=== PATIENT | male | born 1965 | race Two or more races ===

== ENCOUNTER 2017-10-06 20:58 | Inpatient (IN) | payer OTHER ==
[~2017-10-06] VITALS: Ht 180.3 cm; Wt 57.3 kg
[2017-10-06 21:17] VITALS: BP 110/69
--- NOTE | 2017-10-06 21:18 | NUR ---
52 Y/O MALE PLACED IN BED 5 FOR EVALUATION OF RAPID HEART RATE. PT IS WARM TO TOUCH AND HAS A RECTAL TEMP OF 101.8
--- NOTE | 2017-10-06 21:24 | NUR ---
EKG AND CXR DONE.
[2017-10-06] MEDS ORDERED: IV NS 0.9% 500 ML BAG IV ONE (21:30)
[2017-10-06 21:37] LABS: BASOPHILS # (AUTO) 0.8 /CMM (0.0-0.2); BASOPHILS % (AUTO) 3.8 % (0.0-2.0); EOSINOPHILS # (AUTO) 0.1 /CMM (0.0-0.7); EOSINOPHILS % (AUTO) 0.5 % (0.0-6.0); HEMATOCRIT 34 % (39-51); HEMOGLOBIN 10.9 g/dL (13.5-17.5); LYMPHOCYTES # (AUTO) 0.7 /CMM (0.8-4.8); LYMPHOCYTES % (AUTO) 3.4 % (20.0-44.0); MEAN CORPUSCULAR HEMOGLOBIN 27 PG (26.0-33.0); MEAN CORPUSCULAR HGB CONC 32 g/dl (31.0-36.0); MEAN CORPUSCULAR VOLUME 84 fL (80-96); MONOCYTES # (AUTO) 0.4 /CMM (0.1-1.30); MONOCYTES % (AUTO) 1.9 % (2.0-12.0); NEUTROPHILS # (AUTO) 18.6 /CMM (1.8-8.9); NEUTROPHILS % (AUTO) 90.4 % (43.0-81.0); PLATELET COUNT (AUTO) 752 /CMM (150-450); RDW COEFFICIENT OF VARIATION 19.5 (11.5-15.0); RED BLOOD CELL COUNT(AUTO) 4.04 MIL/uL (4.5-6.0); WHITE BLOOD COUNT (AUTO) 20.6 K/uL (4.3-11.0)
[2017-10-06] MEDS ORDERED: ACETAMINOPHEN 325 MG TABLET PO STA (21:42)
--- NOTE | 2017-10-06 21:42 | NUR ---
PT ON VENT. NOT HOLDING SAT WELL. FIO2 INCREASED TO 100%. PT SUCTIONED. EKG AND CXR DONE. H/L 20G PLACED RIGHT A/C BLOOD DRAWN INCLUDING B/C. IVF RUNNING NOW.
[2017-10-06] MEDS ORDERED: IV NS 0.9% 1,000 ML BAG IV STA (21:46)
[2017-10-06 21:49] LABS: CALCIUM, SERUM 9.6 mg/dL (8.5-10.1); CHLORIDE 95 mmol/L (98-107); CREATININE 0.3 mg/dL (0.6-1.3); GLUCOSE 158 mg/dL (74-106); POTASSIUM 4.2 mmol/L (3.5-5.1); SODIUM SERUM 134 mmol/L (136-145); UREA NITROGEN, BLOOD 21 mg/dL (7-18)
[2017-10-06 21:50] LABS: CARBON DIOXIDE 41 mmol/L (21-32)
[2017-10-06 21:52] LABS: INR 1.04 (0.85-1.15)
[2017-10-06 21:56] LABS: TROPONIN I < 0.017 ng/mL (0.00-0.056)
[2017-10-06] MEDS ORDERED: ACETAMINOPHEN ES 500 MG TABLET ONE (22:07)
[2017-10-06 22:09] LABS: BAND % (MANUAL) 19 % (0.0-5.0); EOSINOPHILS % (MANUAL) 1 % (0-4); LYMPHOCYTES % (MANUAL) 4 % (16-48); NEUTROPHILS % (MANUAL) 76 (42-76)
[2017-10-06] MEDS ORDERED: PIPERACILLIN /TAZOBACTAM 3.375 G VIAL IV ONE (22:21)
--- NOTE | 2017-10-06 22:25 | NUR ---
CONTINUE TO GIVE IVF. TYLENOL GIVEN VIA G-TUBE. ANTIBIOTIC ZOSYN STARTED. HEAR RATE NOW IN LOW 130'S
[2017-10-06] MEDS ORDERED: PIPERACILLIN /TAZOBACTAM 3.375 G in IV D5W 50 ML IV ONE (22:30)
[2017-10-06] MEDS ORDERED: VANCOMYCIN 1 GM in IV D5W 250 ML IV ONE (22:30)
[2017-10-06 23:15] VITALS: BP 105/61
[2017-10-06] MEDS ORDERED: LEVALBUTEROL HCL NEB 1.25 MG/0.5 ML VIAL.NEB NEB PRN (23:30)
[2017-10-06] MEDS ORDERED: ACETAMINOPHEN 325 MG TABLET MC PRN (23:30)
[2017-10-06] MEDS ORDERED: MORPHINE SULFATE INJ 2 MG/ML DISP.SYRIN IV PRN (23:30)
[2017-10-06] MEDS ORDERED: IPRATROPIUM NEB FS 0.5 MG/2.5 ML AMPUL.NEB NEB PRN (23:30)
[2017-10-06] MEDS ORDERED: ONDANSETRON HCL/PF 4 MG/2 ML VIAL IVP PRN (23:30)
[2017-10-06] MEDS ORDERED: Z GUARD REMEDY 2 OZ OINT TP PRN (23:30)
--- NOTE | 2017-10-06 23:39 | NUR ---
LAB LATE IN RUNNING LACTIC ACID LEVEL.
--- NOTE | 2017-10-06 23:48 | NUR ---
E REPORT.PT ASSIGNED ROOM 256 IN ICU. ADMITTING MD DR. REBOLLEDO. PREPARING TO [facility]
[2017-10-06 23:50] LABS: APPEARANCE,URINE CLEAR (CLEAR); BILIRUBIN,URINE NEGATIVE (NEGATIVE); BLOOD, URINE 1+ Ery/uL (NEGATIVE); COLOR,URINE YELLOW (YELLOW); KETONES,URINE NEGATIVE (NEGATIVE); LEUKOCYTE ESTERASE ,URINE NEGATIVE (NEGATIVE); NITRITE, URINE NEGATIVE (NEGATIVE); PROTEIN,URINE 1+ mg/dl (NEGATIVE); UGLUCOSE NEGATIVE (NEGATIVE); UROBILINOGEN,URINE 0.2 EU/dL (0.2)
[2017-10-06 23:55] LABS: BACTERIA,URINE None seen /HPF (None Seen); SQUAMOUS EPITHELIAL CELL,UR Rare /HPF (None Seen); WBC,URINE 0-2 /HPF (0-3)
[2017-10-07] VITALS (45 sets, daily range): BP systolic 88–121; BP diastolic 53–73
--- NOTE | 2017-10-07 00:07 | NUR ---
RN NOTES REPORT RECEIVED FROM ACCOUNTING MANAGER CONTROLLER CESAR
[2017-10-07 00:10] LABS: ALANINE AMINOTRANSFERASE 33 U/L (12-78); ALKALINE PHOSPHATASE 118 U/L (46-116); ASPARTATE AMINOTRANSFERASE 33 U/L (15-37); BILIRUBIN,DIRECT 0.1 mg/dL (0.0-0.2); BILIRUBIN,TOTAL 0.2 mg/dL (0.2-1.0); TOTAL PROTEIN, SERUM 7.9 g/dL (6.4-8.2)
--- NOTE | 2017-10-07 00:35 | NUR ---
RN NOTES PT BROUGHT IN VIA GURNEY. TOLERATED TRANSFER TO BED WELL. NON-VERBAL, ABLE TO UNDERSTAND SOME CONCEPTS, NODS HEAD TO ANSWER. ON VENT WITH SETTINGS AC 14, TV 550, FIO2 100%, PEEP 5, SATURATING WELL, NO S/S OF RESP DISTRESS. GTUBE IS CLAMPED. SKIN CHECK DONE, WOUND PICS TAKEN AND FILED. HART CATH INTACT. RIGHT AC 20G FLUSHED AND PATENT, NO S/S OF INFILTRATION/INFECTION, DRESSING CDI. BED LOW AND LOCKED, SIDERAILS UP, CALL LIGHT WITHIN REACH. WILL MONITOR
--- NOTE | 2017-10-07 00:58 | NUR ---
ROOM CHANGE TO ICU 252. DX LEUKOCYTOSIS, JENS GHERIG DISEASE, AND PNA. PT TRANSFERRED TO ICU. PT REMAINS ON VENT.
[2017-10-07] MEDS: IV NS 0.9% 1,000 ML IV PRN ×2 (01:10→15:32)
[2017-10-07] MEDS ORDERED: PIPERACILLIN /TAZOBACTAM 2.25 G VIAL IV ONE (03:12)
[2017-10-07] MEDS ORDERED: PIPERACILLIN /TAZOBACTAM 2.25 G in IV D5W 50 ML IV ONE (04:00)
[2017-10-07] MEDS ORDERED: PIPERACILLIN /TAZOBACTAM 3.375 G in IV D5W 50 ML IV SCH ×2 (04:00→10:00)
[2017-10-07 04:40] LABS: BASOPHILS % (AUTO) 0.2 % (0.0-2.0); EOSINOPHILS # (AUTO) 0.2 /CMM (0.0-0.7); EOSINOPHILS % (AUTO) 1.3 % (0.0-6.0); HEMATOCRIT 28 % (39-51); HEMOGLOBIN 8.6 g/dL (13.5-17.5); LYMPHOCYTES # (AUTO) 1.4 /CMM (0.8-4.8); LYMPHOCYTES % (AUTO) 8.9 % (20.0-44.0); MEAN CORPUSCULAR HEMOGLOBIN 27 PG (26.0-33.0); MEAN CORPUSCULAR HGB CONC 31 g/dl (31.0-36.0); MEAN CORPUSCULAR VOLUME 86 fL (80-96); MONOCYTES # (AUTO) 0.1 /CMM (0.1-1.30); MONOCYTES % (AUTO) 0.7 % (2.0-12.0); NEUTROPHILS # (AUTO) 14.1 /CMM (1.8-8.9); NEUTROPHILS % (AUTO) 88.9 % (43.0-81.0); PLATELET COUNT (AUTO) 519 /CMM (150-450); RDW COEFFICIENT OF VARIATION 20.8 (11.5-15.0); RED BLOOD CELL COUNT(AUTO) 3.23 MIL/uL (4.5-6.0); WHITE BLOOD COUNT (AUTO) 15.9 K/uL (4.3-11.0)
--- NOTE | 2017-10-07 04:49 | NUR ---
PT RECEIVED ON VENT VIA CHARTED SETTINGS AND ROUTE. VENT PLUGGED INTO RED OUTLET. VENT ALARMS SET AND AUDIBLE. DISCONNECT ALARMS CHECKED. AMBU BAG AT BEDSIDE. TOLERATING VENT SETTINGS. Addendum: 10/07/17 at 0449 by SUKHDEV HUYNH RT Amended: Links added.
[2017-10-07 05:15] LABS: ALBUMIN 1.6 g/dL (3.4-5.0); BILIRUBIN,TOTAL 0.2 mg/dL (0.2-1.0); CALCIUM, SERUM 8.7 mg/dL (8.5-10.1); CREATININE 0.2 mg/dL (0.6-1.3); MAGNESIUM 1.8 mg/dL (1.8-2.4); PHOSPHORUS 3.7 mg/dL (2.5-4.9); POTASSIUM 3.8 mmol/L (3.5-5.1); TOTAL PROTEIN, SERUM 6.4 g/dL (6.4-8.2)
[2017-10-07 05:17] LABS: THYROID STIMULATING HORMONE 1.724 uIU/mL (0.358-3.74)
--- NOTE | 2017-10-07 06:20 | NUR ---
RN CLOSING NOTES PT REMAINS STABLE OF THE MOMENT. ALL DUE MEDS GIVEN, AM CARE PROVIDED. CURRENT FIO2 IS NOW 40%. BED LOW AND LOCKED, SIDERAILS UP, CALL LIGHT WITHIN REACH. WILL ENDORSE ALEXIA TO AM RN
--- NOTE | 2017-10-07 07:15 | NUR ---
HEAD OF IT NOTES RECEIVED PATIENT AOX1 ABLE TO FOLLOW COMMANDS , NOT IN ACUTE DISTRESS , RESPIRATIONS EVEN AND UNLABORED WITH SPO2 OF 100% VIA MECHANICAL VENTILATOR SETTINGS ORDERED , TRACH IN PLACE , ST 110 ON BEDSIDE MONITOR , GT PATENT AND INTACT CLAMPED , FC DRAINING VIA GRAVITY WITH CLEAR YELLOW URINE , IV OF R HAND # 18 PATENT AND INTACT WITH NS @ 70ML/HR , R AC # 20 PATENT AND INTACT SL , ALL NEEDS ATTENDED , BED ON LOW AND LOCKED POSITION , SIDE RAILS X2 , HOB @ 35 , WILL CONTINUE TO MONITOR
--- NOTE | 2017-10-07 07:49 | NUR ---
MEDICAL GENETICIST NOTES RECEIVED A CALL FROM TONI TO OBTAIN MRSA SWAB , SPECIMEN COLLECTED , LABELED AND SENT TO LAB CALLED MEDICATION RECON NURSE TO F/U HOME MEDS TO PUT IN THE SYSTEM , SPOKE WITH KULWINDER NURSE STACEY .
[2017-10-07] MEDS ORDERED: ALBUTEROL FS 2.5 MG/3 ML VIAL.NEB NEB PRN (08:30)
[2017-10-07] MEDS ORDERED: FEE PK DOSING 1 MIN EA MC ONE ×2 (08:31→09:28)
[2017-10-07] MEDS ORDERED: VANCOMYCIN 0.75 GM in IV D5W 250 ML IV SCH (09:00)
[2017-10-07] MEDS ORDERED: ENOX40DI SQ (09:15)
[2017-10-07] MEDS ORDERED: NA P133E RC (09:15)
[2017-10-07] MEDS ORDERED: BISA10SU61 RC (09:15)
[2017-10-07] MEDS ORDERED: SACC250C GT (09:15)
[2017-10-07] MEDS ORDERED: FERR220S2 GT (09:15)
[2017-10-07] MEDS ORDERED: ALBU2.5V38 IH ×2 (09:15)
[2017-10-07] MEDS ORDERED: ACET-73 GT (09:15)
[2017-10-07] MEDS ORDERED: BACL10TA GT (09:15)
[2017-10-07] MEDS ORDERED: FAMO40TA7 GT (09:15)
[2017-10-07] MEDS ORDERED: IPRA0.2S9 IH ×2 (09:15)
[2017-10-07] MEDS ORDERED: ACET325T53 GT (09:15)
[2017-10-07] MEDS ORDERED: CLOP75TA15 GT (09:15)
[2017-10-07] MEDS ORDERED: DOCU50LI GT (09:15)
[2017-10-07] MEDS ORDERED: MIDO5TAB GT (09:19)
[2017-10-07] MEDS ORDERED: MAGN400O6 GT (09:20)
--- NOTE | 2017-10-07 09:20 | NUR ---
CARTON CATCHER NOTES SEEN AND EVALUATED BY DR ROMAN , DISCUSSED LABS , CURRENT V/S , WITH LOW GRADE TEMP OF 100F ,SINUS TACHYCARDIA @ 110-115BMP , TOLERATING CURRENT VENT SETTINGS , MD AWARE . VERIFIED CT CHEST WITHOUT CONTRAST ORDER FROM ADMISSION , MD AWARE .
[2017-10-07] MEDS ORDERED: CRAN3875 GT (09:41)
[2017-10-07] MEDS ORDERED: SENN-167 GT (09:41)
[2017-10-07] MEDS ORDERED: ASCO500T9 GT (09:41)
[2017-10-07] MEDS ORDERED: SORB30SO2 GT (09:41)
[2017-10-07] MEDS ORDERED: METO25TA6 GT (09:41)
[2017-10-07] MEDS ORDERED: ZINC220C6 GT (09:41)
[2017-10-07] MEDS ORDERED: MULT-594 GT (09:41)
[2017-10-07] MEDS ORDERED: HYDR-552 GT ×2 (09:41)
[2017-10-07] MEDS ORDERED: EPOE4000 SQ (09:41)
[2017-10-07] MEDS ORDERED: AMIN30LI2 GT (09:41)
[2017-10-07] MEDS ORDERED: LEVO500T75 GT (09:41)
--- NOTE | 2017-10-07 10:03 | NUR ---
MOTOR AND GENERATOR ASSEMBLER NOTES DARIEN RN FROM WOUND CARE SEEN AND EVALUATED THE PATIENT , AWAITING FOR WOUND TX ORDERS
--- NOTE | 2017-10-07 10:09 | NUR ---
WOUND CARE CONSULT: PT PRESENTS WITH STAGE 4 ULCER TO SACRUM WITH UNDERMINING OF 3CM FROM 10 TO 1 OCLOCK POSITION, WELL RT EAR DEEP TISSUE INJURY IN EVOLUTION, PRESENT ON ADMISSION. FIRST STEP MATTRESS ORDERED. RECOMMEND SURGICAL CONSULT. ALL SKIN PROTECTION AND WOUND CARE RECOMMENDATIONS DISCUSSED WITH NURSING STAFF. CURRENT SRINIVASAN SCORE IS 11. WILL SEE PRN. BOURGEOIS IN AGREEMENT WITH PLAN OF CARE. Addendum: 10/07/17 at 1011 by DARIEN TAVERAS WNDNU Amended: Links added.
[2017-10-07] MEDS ORDERED: HYDROGEL DRESSING 90 GM TUBE TP PRN (10:30)
[2017-10-07] MEDS: HYDROGEL DRESSING 90 GM TUBE TP SCH (11:07)
[2017-10-07 11:16] LABS: ABG BASE EXCESS 9.1 mmol/L; ABG PCO2 50.6 mmHg (35.0-45.0); ABG PH 7.449 (7.350-7.450); ABG PO2 126.4 mmHg (75.0-100.0); AaDO2 100.6 mmHg; COHb 0.3 % (0.5-1.5); MetHb 0.7 % (0.0-1.5); PEEP,BG 5 cm H2O; SITE, ABG Right Radial; VT, ABG 550 mL
--- NOTE | 2017-10-07 11:26 | NUR ---
OUTDOOR POWER EQUIPMENT MECHANIC NOTES SEEN AND EVALUATED BY DR FERNANDEZ , DISCUSSED LABS , ABG , CURRENT V/S , NO PRESSORS , TOLERATING CURRENT VENT SETTINGS , F/U MEDICATION RECON , AWARE
[2017-10-07] MEDS: IPRATROPIUM NEB FS 0.5 MG/2.5 ML AMPUL.NEB NEB SCH ×4 (11:49→23:47)
[2017-10-07] MEDS: PIPERACILLIN /TAZOBACTAM 3.375 G in IV NS 0.9% 50 ML IV SCH ×3 (11:50→23:53)
--- NOTE | 2017-10-07 12:51 | NUR ---
PAY CLERK NOTES RECEIVED A CALL FROM DIETITIAN , ORDER TO START PT ON FIBERSOURCE WITH A GOAL RATE OF 60ML/HR , AND PROSTAT DAILY , ORDERS CARRIED OUT
[2017-10-07] MEDS: FIBERSOURCE HN 1,000 ML BOTTLE GT PRN (14:11)
[2017-10-07] MEDS ORDERED: BISACODYL SUPP (10 MG) 10 MG/SUPP.RECT SUPP.RECT RC PRN (15:00)
[2017-10-07] MEDS ORDERED: IPRATROPIUM NEB FS 0.5 MG/2.5 ML AMPUL.NEB IH PRN (15:00)
[2017-10-07] MEDS ORDERED: ALBUTEROL FS 2.5 MG/3 ML VIAL.NEB IH PRN (15:00)
[2017-10-07] MEDS ORDERED: MAGNESIUM HYDROXIDE 30 ML UDC GT PRN (15:00)
[2017-10-07] MEDS ORDERED: MISCELLANEOUS MED 1 EA EA GT PRN (15:00)
[2017-10-07] MEDS ORDERED: NA PHOS,M-B/NA PHOS,DI-BA 1 EA ENEMA RC PRN (15:00)
--- NOTE | 2017-10-07 16:29 | NUR ---
RT NOTE: PATIENT RECEIVED WITH #7 PORT[place] TRACH ON PB 840 VENT. ALARMS VERIFIED AND AUDIBLE. SUCTIONED AND LAVAGED SMALL- MODERATE AMOUNT OF THICK WHITE SECRETIONS. B/S=BILATERAL CLEAR THROUGHOUT LUNGS. VENT PLUGGED INTO RED OUTLET. AMBU BAG AT [facility].
[2017-10-07] MEDS: BACLOFEN (10 MG) 10 MG TABLET GT SCH (16:38)
[2017-10-07] MEDS: FERROUS SULFATE UDC 300 MG/5 ML UDC GT SCH (16:38)
[2017-10-07] MEDS: MIDODRINE HCL (5MG) 5 MG TABLET GT SCH (16:39)
[2017-10-07] MEDS ORDERED: PROSOURCE / PROSTAT (PYXIS) 30 ML UDC GT SCH (17:00)
[2017-10-07] MEDS ORDERED: Medication Not On Formulary EA (Cran/Vitc/Mannose/Inulin/Brom (Uti-Stat Liquid) 30 ML) GT SCH (17:00)
[2017-10-07] MEDS ORDERED: SACCHAROMYCES BOULARDII 250 MG CAPSULE GT SCH (17:22)
--- NOTE | 2017-10-07 20:26 | NUR ---
received pt from day shift, alert, follows simple commands, ST, on vent, lungs congested, no edema, GT to feeding, f/c OK output, v/s stable, no pain, pt turned and repositioned.
--- NOTE | 2017-10-07 20:40 | NUR ---
PT RECEIVED TRACHED ON VENT. NO RESP DISTRESS NOTED TOLERATING SETTINS. SX'D FOR SML AMT OF PALE SECRETIONS. VENT ALARMS SET AND AUDIBLE. AMBU BAG AT BEDSIDE. VENT PLUGGED INTO RED OUTLET. WILL CONTINUE TO MONITOR. Addendum: 10/07/17 at 2042 by MIO SANTOS RT Amended: Links added.
[2017-10-07] MEDS: VANCOMYCIN 0.75 GM in IV D5W 250 ML IV SCH (21:19)
[2017-10-07] MEDS: HYDROCODONE/APAP 5/325MG 1 EACH TABLET GT SCH (21:19)
[2017-10-07] MEDS: SENNOSIDES 8.6 MG TABLET GT SCH (21:19)
[2017-10-07] MEDS ORDERED: SORBITOL SOLUTION 30 ML ONE (21:33)
[2017-10-07] MEDS: SORBITOL SOLUTION 30 ML GT SCH (21:36)
[2017-10-08] VITALS (39 sets, daily range): BP systolic 84–129; BP diastolic 51–75
--- NOTE | 2017-10-08 00:24 | NUR ---
pt is resting in the bed, v/s stable, no pain, pt turned and repositioned q2hrs.
[2017-10-08] MEDS: IPRATROPIUM NEB FS 0.5 MG/2.5 ML AMPUL.NEB NEB SCH ×7 (03:29→23:56)
--- NOTE | 2017-10-08 04:17 | NUR ---
pt is resting in the bed, no acute distress overnight, ST, v/s stable, no pain, tolerates feeding, pt cleaned, changed and repositioned q2hrs.
[2017-10-08] MEDS: PIPERACILLIN /TAZOBACTAM 3.375 G in IV NS 0.9% 50 ML IV SCH ×4 (05:01→23:47)
[2017-10-08 05:09] LABS: BASOPHILS % (AUTO) 0.1 % (0.0-2.0); EOSINOPHILS # (AUTO) 0.7 /CMM (0.0-0.7); EOSINOPHILS % (AUTO) 3.7 % (0.0-6.0); HEMATOCRIT 23 % (39-51); HEMOGLOBIN 7.2 g/dL (13.5-17.5); LYMPHOCYTES # (AUTO) 1.6 /CMM (0.8-4.8); LYMPHOCYTES % (AUTO) 8.4 % (20.0-44.0); MEAN CORPUSCULAR HEMOGLOBIN 27 PG (26.0-33.0); MEAN CORPUSCULAR HGB CONC 31 g/dl (31.0-36.0); MEAN CORPUSCULAR VOLUME 85 fL (80-96); MONOCYTES # (AUTO) 0.5 /CMM (0.1-1.30); MONOCYTES % (AUTO) 2.9 % (2.0-12.0); NEUTROPHILS % (AUTO) 84.9 % (43.0-81.0); PLATELET COUNT (AUTO) 497 /CMM (150-450); RDW COEFFICIENT OF VARIATION 20.7 (11.5-15.0); RED BLOOD CELL COUNT(AUTO) 2.71 MIL/uL (4.5-6.0); WHITE BLOOD COUNT (AUTO) 18.8 K/uL (4.3-11.0)
[2017-10-08 05:25] LABS: CALCIUM, SERUM 8.5 mg/dL (8.5-10.1); CREATININE 0.2 mg/dL (0.6-1.3); PHOSPHORUS 3.1 mg/dL (2.5-4.9); POTASSIUM 3.6 mmol/L (3.5-5.1)
--- NOTE | 2017-10-08 07:10 | NUR ---
RN NOTES RECEIVED PATIENT ON BED, AOX1 ABLE TO FOLLOW COMMANDS ,NODES TO YES AND NO QUESTIONS ,VENT/TRACH DEPENDENT, TRACH SUCTIONING DONE, NO SOB NOTED, O2 SAT 100%, ON TELE ST HR IN 110'S , FIBERSOURCE AT 60CC/HR RUNNING VIA G-TUBE , TOLERATING WELL, HOB ELEVATED NO RESIDUAL NOTED,HART DRAINING VIA GRAVITY WITH CLEAR YELLOW URINE , R HAND IV SITE G 18 AND R AC IV G 18, SITES CDI, NS @ 70ML/HR RUNNING VIA R AC # 20 , ALL NEEDS ATTENDED , BED LOCKED AND IN LOWEST POSITION, SIDE RAILS X3 , CALL LIGHTS WITHIN EASY REACH, WILL CONTINUE TO MONITOR CLOSHAILEE
--- NOTE | 2017-10-08 07:39 | NUR ---
Pt received on mechanical vent. Pt trach is secure. Vent is plugged into a red outlet, alarms are set and audible, and BVM is at bedside. Addendum: 10/08/17 at 0740 by TONIA YANEZ RT Amended: Links added.
[2017-10-08] MEDS: FERROUS SULFATE UDC 300 MG/5 ML UDC GT SCH ×3 (08:32→16:16)
[2017-10-08] MEDS: MULTIVITAMINS,THERAGRAN 1 UDTAB TABLET GT SCH (08:32)
[2017-10-08] MEDS: LACTOBACILLUS RHAMNOSUS GG 1 EACH CAP.SPRINK PO SCH ×2 (08:32→16:16)
[2017-10-08] MEDS: DOCUSATE SODIUM LIQ 100 MG/10 ML UDC GT SCH (08:32)
[2017-10-08] MEDS: SENNOSIDES 8.6 MG TABLET GT SCH ×2 (08:33→21:20)
[2017-10-08] MEDS: BACLOFEN (10 MG) 10 MG TABLET GT SCH ×2 (08:33→16:16)
[2017-10-08] MEDS: ZINC SULFATE 220 MG CAPSULE GT SCH (08:33)
[2017-10-08] MEDS: MIDODRINE HCL (5MG) 5 MG TABLET GT SCH ×3 (08:33→16:16)
[2017-10-08] MEDS: HYDROCODONE/APAP 5/325MG 1 EACH TABLET GT SCH ×2 (08:33→21:19)
[2017-10-08] MEDS: FAMOTIDINE (20 MG) 20 MG TABLET GT SCH (08:33)
[2017-10-08] MEDS: ASCORBIC ACID 500 MG TABLET GT SCH (08:33)
[2017-10-08] MEDS: CLOPIDOGREL BISULFATE 75 MG TABLET PO SCH (08:34)
[2017-10-08] MEDS: PROSOURCE / PROSTAT (PYXIS) 30 ML UDC GT SCH (08:34)
[2017-10-08] MEDS: ENOXAPARIN SODIUM 40 MG/0.4 ML DISP.SYRIN SQ SCH (08:35)
[2017-10-08] MEDS: HYDROGEL DRESSING 90 GM TUBE TP SCH (08:35)
[2017-10-08] MEDS: IV NS 0.9% 1,000 ML IV PRN (08:47)
[2017-10-08] MEDS: VANCOMYCIN 0.75 GM in IV D5W 250 ML IV SCH ×2 (09:18→16:16)
[2017-10-08] MEDS: SORBITOL SOLUTION 30 ML GT SCH ×2 (11:07→21:20)
--- NOTE | 2017-10-08 12:00 | NUR ---
RN NOTES ON TELE SINUS TACH, TOLERATING TF WELL, NO RESIDUAL NOTED , CONTINUE TO MONITOR .
[2017-10-08] MEDS: FIBERSOURCE HN 1,000 ML BOTTLE GT PRN (12:29)
--- NOTE | 2017-10-08 15:34 | NUR ---
RN NOTES E TRACH SUCTIONING DONE , TOLERATING TF WELL, NO DISTRESS NOTED. AWAITING TO BE TRANSFER TO [facility] FLOOR WHEN BED IS AVAILABLE , CONTINUE TO MONITOR .
--- NOTE | 2017-10-08 18:43 | NUR ---
RN NOTES PT TRANSFERRED TO ROOM 117-1 [facility] IN STABLE CONDITION .
--- NOTE | 2017-10-08 19:30 | NUR ---
[facility] RN INITIAL NOTE PT RECEIVED IN BED AWAKE. ON MECH VENT WITH SETTINGS WELL TOLERATED. TELE-SINUS TACH 110. GTUBE FEEDING WELL TOLERATED WITHOUT RESIDUALS NOTED. HOB ELEVATED AND ON ASPIRATION PRECAUTIONS. IV RAC AND R HAND CLEAN, PATENT AND FLUSHING WELL WITH FLUIDS INFUSING. HART CATHETER IN PLACE AND DRAINING BY GRAVITY. WILL CONTINUE TO MONITOR.
[2017-10-08] MEDS ORDERED: LIDOCAINE 2%-EPI 1:100,000 30 ML VIAL TP ONE (22:30)
--- NOTE | 2017-10-08 23:58 | NUR ---
Received pt on vent support, pt is stable on current vent settings, no SOB or distress noted, alarms are on and audible,ventiletor is plugged into red outlet, ambu bag at bedside, will continue monitoring per MDS orders. Addendum: 10/08/17 at 2359 by SUZANNA CORDOBA RT Amended: Links added.
[2017-10-09] VITALS: BP 131/72
[2017-10-09] MEDS: VANCOMYCIN 0.75 GM in IV D5W 250 ML IV SCH ×2 (00:31→09:22)
[2017-10-09] MEDS: IPRATROPIUM NEB FS 0.5 MG/2.5 ML AMPUL.NEB NEB SCH ×6 (03:36→23:13)
[2017-10-09 04:00] VITALS: BP_SYST 106; BP_SYST 115; BP_DIAS 62; BP_DIAS 72
[2017-10-09] MEDS: PIPERACILLIN /TAZOBACTAM 3.375 G in IV NS 0.9% 50 ML IV SCH ×3 (05:26→17:01)
[2017-10-09] MEDS: IV NS 0.9% 1,000 ML IV PRN (05:26)
--- NOTE | 2017-10-09 06:58 | NUR ---
[facility] RN CLOSING NOTE NO ACUTE DISTRESS NOTED. VENT SETTINGS WELL TOLERATED. HOB ELEVATED. ALL NEEDS ATTENDED TO AND MET PROMPTLY. KEPT CLEAN AND DRY. SUCTIONED NEEDED. TREATMENT PERFORMED ORDERED. REPOSITIONED Q2H. WILL ENDORSE TO NEXT SHIFT FOR CONTINUITY OF CARE.
--- NOTE | 2017-10-09 07:23 | NUR ---
Male elvira pt received on mechanical vent. Pt elvira is secure. Vent is plugged into a red outlet, alarms are set and audible, and BVM is at bedside. Addendum: 10/09/17 at 0724 by TONIA YANEZ RT Amended: Links added.
--- NOTE | 2017-10-09 07:30 | NUR ---
[facility] RN INITIAL NOTES RECEIVED PATIENT ASLEEP IN BED, EASY TO AROUSE, AOX1, NONVERBAL, ON VENT SETTINGS ORDERED, NO SIGNS OF DISTRESS, ON TELE MONITORING ST 120 HR, ON GTUBE FEEDINGS NO RESIDUAL NOTED, FIBERSOURCE @ 60ML/HR, IV RAC 20G AND R HAND 18G, NS @ 70 ML/HR, SACRAL WOUND NOTED, DEBRIDEMENT TODAY CONSENT SIGNED, BED IN LOW AND LOCKED POSITION, WILL CONTINUE TO MONITOR.
[2017-10-09 07:48] LABS: BASOPHILS # (AUTO) 0.2 /CMM (0.0-0.2); EOSINOPHILS # (AUTO) 0.6 /CMM (0.0-0.7); EOSINOPHILS % (AUTO) 3.4 % (0.0-6.0); HEMATOCRIT 25 % (39-51); HEMOGLOBIN 7.8 g/dL (13.5-17.5); LYMPHOCYTES # (AUTO) 1.2 /CMM (0.8-4.8); LYMPHOCYTES % (AUTO) 6.7 % (20.0-44.0); MEAN CORPUSCULAR HEMOGLOBIN 27 PG (26.0-33.0); MEAN CORPUSCULAR HGB CONC 31 g/dl (31.0-36.0); MEAN CORPUSCULAR VOLUME 86 fL (80-96); MONOCYTES # (AUTO) 0.4 /CMM (0.1-1.30); MONOCYTES % (AUTO) 2.5 % (2.0-12.0); NEUTROPHILS # (AUTO) 15.2 /CMM (1.8-8.9); NEUTROPHILS % (AUTO) 86.4 % (43.0-81.0); PLATELET COUNT (AUTO) 503 /CMM (150-450); RED BLOOD CELL COUNT(AUTO) 2.92 MIL/uL (4.5-6.0); WHITE BLOOD COUNT (AUTO) 17.6 K/uL (4.3-11.0)
[2017-10-09 08:00] VITALS: BP_SYST 105; BP_SYST 111; BP_DIAS 60; BP_DIAS 73
[2017-10-09 08:04] LABS: CALCIUM, SERUM 8.4 mg/dL (8.5-10.1); CREATININE 0.2 mg/dL (0.6-1.3); MAGNESIUM 1.9 mg/dL (1.8-2.4); PHOSPHORUS 3.7 mg/dL (2.5-4.9); POTASSIUM 3.8 mmol/L (3.5-5.1)
[2017-10-09] MEDS: SORBITOL SOLUTION 30 ML GT SCH ×2 (09:21→20:50)
[2017-10-09] MEDS: DAKINS QUARTER STRENGTH (0.125%) 480 ML BOTTLE TOP SCH ×2 (09:21→17:01)
[2017-10-09] MEDS: ZINC SULFATE 220 MG CAPSULE GT SCH (09:22)
[2017-10-09] MEDS: FERROUS SULFATE UDC 300 MG/5 ML UDC GT SCH ×3 (09:22→17:01)
[2017-10-09] MEDS: LACTOBACILLUS RHAMNOSUS GG 1 EACH CAP.SPRINK PO SCH ×2 (09:22→17:00)
[2017-10-09] MEDS: DOCUSATE SODIUM LIQ 100 MG/10 ML UDC GT SCH (09:22)
[2017-10-09] MEDS: CLOPIDOGREL BISULFATE 75 MG TABLET PO SCH (09:22)
[2017-10-09] MEDS: SENNOSIDES 8.6 MG TABLET GT SCH ×2 (09:22→20:49)
[2017-10-09] MEDS: BACLOFEN (10 MG) 10 MG TABLET GT SCH ×2 (09:22→16:59)
[2017-10-09] MEDS: FAMOTIDINE (20 MG) 20 MG TABLET GT SCH (09:22)
[2017-10-09] MEDS: MIDODRINE HCL (5MG) 5 MG TABLET GT SCH ×3 (09:23→17:00)
[2017-10-09] MEDS: HYDROCODONE/APAP 5/325MG 1 EACH TABLET GT SCH ×2 (09:23→20:50)
[2017-10-09] MEDS: MULTIVITAMINS,THERAGRAN 1 UDTAB TABLET GT SCH (09:23)
[2017-10-09] MEDS: ASCORBIC ACID 500 MG TABLET GT SCH (09:23)
[2017-10-09] MEDS: ENOXAPARIN SODIUM 40 MG/0.4 ML DISP.SYRIN SQ SCH (09:24)
[2017-10-09] MEDS: HYDROGEL DRESSING 90 GM TUBE TP SCH (09:25)
[2017-10-09] MEDS: PROSOURCE / PROSTAT (PYXIS) 30 ML UDC GT SCH (09:25)
[2017-10-09 12:00] VITALS: BP 105/63
[2017-10-09] MEDS: FIBERSOURCE HN 1,000 ML BOTTLE GT PRN (14:00)
[2017-10-09 16:00] VITALS: BP 115/72
[2017-10-09] MEDS: VANCOMYCIN 1 GM in IV D5W 250 ML IV SCH ×2 (16:59→20:51)
--- NOTE | 2017-10-09 18:52 | NUR ---
[facility] RN END NOTES PATIENT RESTING IN BED, NO SIGNS OF DISTRESS, ALL NEEDS MET, WILL ENDORSE TO MARKETING DIRECTOR ASSISTED LIVING FOR CONTINUITY OF CARE.
--- NOTE | 2017-10-09 19:30 | NUR ---
[facility]/RN NOTES: RECEIVED PT. IN BED SLEEPING W/ HOB ELEVATED. A/O X 1. NON VERBAL. ON VENT SETTING TOLERATING WELL. ON TELE MONITOR W/ ST @ 105. ON GTF PATENT AND INTACT W/ NO RESIDUAL NOTED. TOLERATING WELL. HAS IVF VIA RAC INTACT AND PATENT W/ NO S/S OF INFECTION/INFECTION NOTED. CALL LIGHT W/ REACH. ALL NEEDS MEET AND ATTENDED.
[2017-10-09 20:00] VITALS: BP 116/68
[2017-10-10] VITALS (7 sets, daily range): BP systolic 98–116; BP diastolic 64–73
[2017-10-10] MEDS: PIPERACILLIN /TAZOBACTAM 3.375 G in IV NS 0.9% 50 ML IV SCH ×5 (00:21→23:07)
[2017-10-10] MEDS: IPRATROPIUM NEB FS 0.5 MG/2.5 ML AMPUL.NEB NEB SCH ×6 (04:22→22:53)
[2017-10-10] MEDS: VANCOMYCIN 1 GM in IV D5W 250 ML IV SCH ×3 (04:37→21:34)
[2017-10-10] MEDS: IV NS 0.9% 1,000 ML IV PRN (04:37)
--- NOTE | 2017-10-10 05:07 | NUR ---
RT PT RECEIVED ON [facility] VENT WITH NOTED SETTING. VENT PLUGGED IN TO RED OUTLET. ALARMS SE AND AUDIBLE. AMBU BAG AT HOB. TRACH PATENT AND SECURE. NO SOB OR RESP DISTRESS NOTED ON SHIFT. WILL CONTINUE TO MONITOR. Addendum: 10/10/17 at 0510 by RAFAEL MCELROY RT Amended: Links added.
[2017-10-10 06:46] LABS: BASOPHILS # (AUTO) 0.1 /CMM (0.0-0.2); BASOPHILS % (AUTO) 0.5 % (0.0-2.0); EOSINOPHILS # (AUTO) 0.8 /CMM (0.0-0.7); EOSINOPHILS % (AUTO) 4.4 % (0.0-6.0); HEMATOCRIT 28 % (39-51); HEMOGLOBIN 8.8 g/dL (13.5-17.5); LYMPHOCYTES # (AUTO) 1.4 /CMM (0.8-4.8); LYMPHOCYTES % (AUTO) 7.9 % (20.0-44.0); MEAN CORPUSCULAR HEMOGLOBIN 27 PG (26.0-33.0); MEAN CORPUSCULAR HGB CONC 32 g/dl (31.0-36.0); MEAN CORPUSCULAR VOLUME 86 fL (80-96); MONOCYTES # (AUTO) 0.5 /CMM (0.1-1.30); MONOCYTES % (AUTO) 2.7 % (2.0-12.0); NEUTROPHILS # (AUTO) 14.6 /CMM (1.8-8.9); NEUTROPHILS % (AUTO) 84.5 % (43.0-81.0); PLATELET COUNT (AUTO) 527 /CMM (150-450); RDW COEFFICIENT OF VARIATION 20.3 (11.5-15.0); RED BLOOD CELL COUNT(AUTO) 3.22 MIL/uL (4.5-6.0); WHITE BLOOD COUNT (AUTO) 17.2 K/uL (4.3-11.0)
[2017-10-10 06:51] LABS: CALCIUM, SERUM 8.9 mg/dL (8.5-10.1); CREATININE 0.2 mg/dL (0.6-1.3); PHOSPHORUS 3.2 mg/dL (2.5-4.9); POTASSIUM 4.1 mmol/L (3.5-5.1)
--- NOTE | 2017-10-10 07:30 | NUR ---
[facility] RN INITIAL NOTES RECEIVED PATIENT ASLEEP IN BED, EASY TO AROUSE, AOX1, NONVERBAL, ON VENT SETTINGS ORDERED, NO SIGNS OF DISTRESS, ON TELE MONITORING ST 119 HR, ON GTUBE FEEDINGS NO RESIDUAL NOTED, FIBERSOURCE @ 60ML/HR, IV RAC 20G AND R HAND 18G, NS @ 70 ML/HR, SACRAL WOUND NOTED, , BED IN LOW AND LOCKED POSITION, WILL CONTINUE TO MONITOR.
--- NOTE | 2017-10-10 07:37 | NUR ---
RN/ [facility] NOTES: NO ACUTE CHANGES NOTED DURING THIS SHIFT. REPORT GIVEN TO AM NURSE FOR ALEXIA.
[2017-10-10] MEDS: MULTIVITAMINS,THERAGRAN 1 UDTAB TABLET GT SCH (08:37)
[2017-10-10] MEDS: ASCORBIC ACID 500 MG TABLET GT SCH (08:37)
[2017-10-10] MEDS: FERROUS SULFATE UDC 300 MG/5 ML UDC GT SCH ×3 (08:37→17:12)
[2017-10-10] MEDS: LACTOBACILLUS RHAMNOSUS GG 1 EACH CAP.SPRINK PO SCH ×2 (08:37→17:12)
[2017-10-10] MEDS: PROSOURCE / PROSTAT (PYXIS) 30 ML UDC GT SCH (08:37)
[2017-10-10] MEDS: DOCUSATE SODIUM LIQ 100 MG/10 ML UDC GT SCH (08:37)
[2017-10-10] MEDS: CLOPIDOGREL BISULFATE 75 MG TABLET PO SCH (08:37)
[2017-10-10] MEDS: HYDROCODONE/APAP 5/325MG 1 EACH TABLET GT SCH ×2 (08:37→21:35)
[2017-10-10] MEDS: SORBITOL SOLUTION 30 ML GT SCH ×2 (08:38→21:34)
[2017-10-10] MEDS: MIDODRINE HCL (5MG) 5 MG TABLET GT SCH ×3 (08:38→17:13)
[2017-10-10] MEDS: ZINC SULFATE 220 MG CAPSULE GT SCH (08:38)
[2017-10-10] MEDS: SENNOSIDES 8.6 MG TABLET GT SCH ×2 (08:38→21:34)
[2017-10-10] MEDS: BACLOFEN (10 MG) 10 MG TABLET GT SCH ×2 (08:38→17:13)
[2017-10-10] MEDS: FAMOTIDINE (20 MG) 20 MG TABLET GT SCH (08:38)
[2017-10-10] MEDS: HYDROGEL DRESSING 90 GM TUBE TP SCH (08:39)
[2017-10-10] MEDS: DAKINS QUARTER STRENGTH (0.125%) 480 ML BOTTLE TOP SCH ×2 (08:39→17:14)
[2017-10-10] MEDS: ENOXAPARIN SODIUM 40 MG/0.4 ML DISP.SYRIN SQ SCH (08:40)
[2017-10-10] MEDS: HYDROCODONE/APAP 5/325MG 1 EACH TABLET GT PRN (13:07)
--- NOTE | 2017-10-10 13:30 | NUR ---
EYEGLASS LENS GRINDER NOTES PATIENT RECEIVED DEBRIDEMENT AT BEDSIDE, NO DISTRESS NOTED, TOLERATED WELL, PAIN MEDICATION GIVEN, WILL CONTINUE TO MONITOR.
[2017-10-10] MEDS: NEOMY SULF/BACITRAC ZN/POLY 15 GM TUBE TP SCH (14:27)
--- NOTE | 2017-10-10 17:29 | NUR ---
Pt tolerated current vent settings well. No changes made. Pt trach is secure. Vent is plugged into a red outlet, alarms are set and audible, and BVM is a bedside. Addendum: 10/10/17 at 1730 by TONIA YANEZ RT Amended: Links added.
--- NOTE | 2017-10-10 19:09 | NUR ---
HEEL COVER SPLITTER END NOTES PATIENT RESTING IN BED, NO SIGNS OF DISTRESS, ALL NEEDS MET, CLEAN AND REPOSITIONED, SUCTIONING DONE, WILL ENDORSE TO HISTORY TEACHER FOR CONTINUITY OF CARE.
--- NOTE | 2017-10-10 19:30 | NUR ---
TELE /RN NOTES: RECEIVED PT. IN BED W/ HOB ELEVATED. ON MECHANICAL VENTILATOR W/ PRESCRIBED SETTING TOLERATING WELL. NO FACIAL GRIMACES OR MOANING NOTED. NO S/S OF RESPIRATORY DISTRESS NOTED. ON TELE MONITOR ST @ 105. W/ GTF INPLACE AND PATENT TOLERATING FEEDING WELL W/ NO RESIDUAL NOTED. HAS IVF OF NS @ 70 ML/HR VIA RAC TOLERATING WELL W/ NO S/S OF INFECTION/INFILTRATION NOTED. HAS SL ON RH G # 18 PATENT AND INTACT W/ NO S/S OF INFECTION/INFILTRATION NOTED. FLUSHED WELL. A/O X 1 NON VERBAL. BED LOCKED AND IN LOW POSITION. CALL LIGHT W/ REACH. WILL CONTINUE TO MONITOR.
[2017-10-11] VITALS (8 sets, daily range): BP systolic 90–135; BP diastolic 60–80
[2017-10-11] MEDS: FIBERSOURCE HN 1,000 ML BOTTLE GT PRN ×2 (01:10→17:48)
[2017-10-11] MEDS: IV NS 0.9% 1,000 ML IV PRN ×2 (01:30→17:23)
[2017-10-11] MEDS: IPRATROPIUM NEB FS 0.5 MG/2.5 ML AMPUL.NEB NEB SCH ×6 (03:03→22:52)
[2017-10-11] MEDS: VANCOMYCIN 1 GM in IV D5W 250 ML IV SCH ×3 (04:50→21:22)
[2017-10-11] MEDS: PIPERACILLIN /TAZOBACTAM 3.375 G in IV NS 0.9% 50 ML IV SCH ×3 (06:02→17:23)
--- NOTE | 2017-10-11 06:58 | NUR ---
TELE/RN NOTES: NO ACUTE CHANGES NOTED DURING THIS SHIFT. REPORT GIVEN TO AM NURSE FOR ALEXIA.
--- NOTE | 2017-10-11 07:08 | NUR ---
Male elvira pt received on mechanical vent. Pt elvira is secure. Vent is plugged into a red outlet, alarms are set and audible, and BVM is at bedside. Addendum: 10/11/17 at 0751 by TONIA YANEZ RT Amended: Links added.
--- NOTE | 2017-10-11 07:12 | NUR ---
RN INITIAL NOTES: REC'D PT ON BED, NOT IN ANY DISTRESS, OPENS EYES SPONTANEOUSLY. ON MV VIA TRACH, NO SOB. ON TELEMONITOR, ST W/ HR 110 BPM. HAS GT PATENT & INTACT, ON CONT TUBE FEEDING FIBERSOURCE X 60 CC/HR INFUSING WELL. HAS 2 IV LINE ACCESS: R AC G20 AND R HAND G18, BOTH PATENT & INTACT W/ NO S/SX OF INFECTION/INFILTRATION NOTED, R AC HAS NS X 70 CC/HR INFUSING WELL. PROVIDED COMFORT & SAFETY MEASURES. BED KEPT LOW & IN LOCKED POS. CALL LIGHT PLACED W/IN REACH. WILL CONTINUE TO MONITOR & ATTEND PT NEEDS.
[2017-10-11 07:21] LABS: BASOPHILS # (AUTO) 0.1 /CMM (0.0-0.2); BASOPHILS % (AUTO) 0.6 % (0.0-2.0); EOSINOPHILS # (AUTO) 0.8 /CMM (0.0-0.7); EOSINOPHILS % (AUTO) 5.6 % (0.0-6.0); HEMATOCRIT 27 % (39-51); HEMOGLOBIN 8.6 g/dL (13.5-17.5); LYMPHOCYTES # (AUTO) 1.3 /CMM (0.8-4.8); LYMPHOCYTES % (AUTO) 9.4 % (20.0-44.0); MEAN CORPUSCULAR HEMOGLOBIN 27 PG (26.0-33.0); MEAN CORPUSCULAR HGB CONC 32 g/dl (31.0-36.0); MEAN CORPUSCULAR VOLUME 86 fL (80-96); MONOCYTES # (AUTO) 0.6 /CMM (0.1-1.30); NEUTROPHILS # (AUTO) 11.4 /CMM (1.8-8.9); NEUTROPHILS % (AUTO) 80.4 % (43.0-81.0); PLATELET COUNT (AUTO) 482 /CMM (150-450); RDW COEFFICIENT OF VARIATION 20.8 (11.5-15.0); RED BLOOD CELL COUNT(AUTO) 3.14 MIL/uL (4.5-6.0); WHITE BLOOD COUNT (AUTO) 14.2 K/uL (4.3-11.0)
[2017-10-11 07:48] LABS: CALCIUM, SERUM 8.5 mg/dL (8.5-10.1); CREATININE 0.2 mg/dL (0.6-1.3); MAGNESIUM 2.1 mg/dL (1.8-2.4); PHOSPHORUS 3.5 mg/dL (2.5-4.9); POTASSIUM 4.1 mmol/L (3.5-5.1)
[2017-10-11] MEDS: FERROUS SULFATE UDC 300 MG/5 ML UDC GT SCH ×3 (08:22→17:23)
[2017-10-11] MEDS: HYDROCODONE/APAP 5/325MG 1 EACH TABLET GT SCH ×2 (08:22→21:23)
[2017-10-11] MEDS: DOCUSATE SODIUM LIQ 100 MG/10 ML UDC GT SCH (08:22)
[2017-10-11] MEDS: MULTIVITAMINS,THERAGRAN 1 UDTAB TABLET GT SCH (08:22)
[2017-10-11] MEDS: CLOPIDOGREL BISULFATE 75 MG TABLET PO SCH (08:22)
[2017-10-11] MEDS: LACTOBACILLUS RHAMNOSUS GG 1 EACH CAP.SPRINK PO SCH ×2 (08:22→17:23)
[2017-10-11] MEDS: ZINC SULFATE 220 MG CAPSULE GT SCH (08:22)
[2017-10-11] MEDS: SENNOSIDES 8.6 MG TABLET GT SCH ×2 (08:22→21:23)
[2017-10-11] MEDS: FAMOTIDINE (20 MG) 20 MG TABLET GT SCH (08:23)
[2017-10-11] MEDS: ASCORBIC ACID 500 MG TABLET GT SCH (08:23)
[2017-10-11] MEDS: PROSOURCE / PROSTAT (PYXIS) 30 ML UDC GT SCH (08:23)
[2017-10-11] MEDS: SORBITOL SOLUTION 30 ML GT SCH ×2 (08:23→21:22)
[2017-10-11] MEDS: BACLOFEN (10 MG) 10 MG TABLET GT SCH ×2 (08:23→17:23)
[2017-10-11] MEDS: DAKINS QUARTER STRENGTH (0.125%) 480 ML BOTTLE TOP SCH ×2 (08:25→17:25)
[2017-10-11] MEDS: NEOMY SULF/BACITRAC ZN/POLY 15 GM TUBE TP SCH (08:25)
[2017-10-11] MEDS: MIDODRINE HCL (5MG) 5 MG TABLET GT SCH ×4 (08:26→17:24)
[2017-10-11] MEDS: ENOXAPARIN SODIUM 40 MG/0.4 ML DISP.SYRIN SQ SCH (08:26)
[2017-10-11 12:25] LABS: EOSINOPHILS % (MANUAL) 2 % (0-4); LYMPHOCYTES % (MANUAL) 6 % (16-48); NEUTROPHILS % (MANUAL) 92 (42-76)
[2017-10-11] MEDS: HYDROCODONE/APAP 5/325MG 1 EACH TABLET GT PRN (15:42)
--- NOTE | 2017-10-11 18:55 | NUR ---
RN INITIAL NOTES: NO ACUTE CHANGES NOTED W/IN SHIFT. PT TOLERATED MV SETTINGS VIA TRACH, NO SOB. ON TELEMONITOR, STILL ST. GT KEPT PATENT & INTACT, ON CONT TUBE FEEDING FIBERSOURCE X 60 CC/HR TOLERATED WELL. 2 IV LINE ACCESS: R AC G20 AND PETER MIDLINE, KEPT PATENT & INTACT W/ NO S/SX OF INFECTION/INFILTRATION NOTED, PETER MIDLINE HAS NS X 70 CC/HR INFUSING WELL. KEPT WELL RESTED. NEEDS ATTENDED. BED KEPT LOW & IN LOCKED POS. CALL LIGHT PLACED W/IN REACH. WILL ENDORSE TO PM RN FOR ALEXIA.
--- NOTE | 2017-10-11 19:28 | NUR ---
RN NOTE RECEIVED PATIENT IN BED, ASLEEP, SINUS TACHYCARDIA 104, NO RESPIRATORY DISTRESS NOTED, ONGOING IV FLUIDS, G-TUBE FEEDING, HART CATHETER IS INTACT, PETER MIDLINE NS AT 70 ML/HR, RAC 20 GAUGE, NO S/S OF INFILTRATION NOTED, ON [facility] VENTILATOR, PLUGGED TO RED OUTLET AND WORKING PROPERLY, NO PAIN OR DISCOMFORT NOTED, ALL SAFETY MEASURES TAKEN, BED IN THE LOWEST POSITION, CALL LIGHT WITHIN REACH, SIDE RAILS UP X 2, WILL CONTINUE TO MONITOR PATIENT
--- NOTE | 2017-10-11 19:34 | NUR ---
RECEIVED TRACH PT ON MECH VENT WITH NOTED SETTING. VENT PLUGGED IN TO RED OUTLET. ALARMS SE AND AUDIBLE. AMBU BAG AT HOB. TRACH PATENT AND SECURE. TECHNICAL ILLUSTRATOR DONE. PT FRANDY Q4 BREATHING TX ORDERED BY MD. NO SOB OR RESP DISTRESS NOTED ON SHIFT. SX PRN. WILL CONTINUE TO MONITOR.
[2017-10-12] VITALS: BP 111/74
[2017-10-12] MEDS: PIPERACILLIN /TAZOBACTAM 3.375 G in IV NS 0.9% 50 ML IV SCH ×4 (00:07→17:22)
[2017-10-12] MEDS: IPRATROPIUM NEB FS 0.5 MG/2.5 ML AMPUL.NEB NEB SCH ×6 (03:23→23:16)
[2017-10-12 04:00] VITALS: BP 115/72
[2017-10-12] MEDS: VANCOMYCIN 1 GM in IV D5W 250 ML IV SCH ×3 (06:02→21:42)
--- NOTE | 2017-10-12 07:27 | NUR ---
RN NOTE NO CHANGES DURING MY SHIFT, PATIENT IS STABLE, NO RESPIRATORY DISTRESS SO2 98%, ON MECHANICAL VENTILATOR, TOLERATES WELL, ALL SAFETY MEASURES TAKEN
[2017-10-12 07:28] LABS: BASOPHILS % (AUTO) 0.1 % (0.0-2.0); EOSINOPHILS # (AUTO) 0.8 /CMM (0.0-0.7); EOSINOPHILS % (AUTO) 5.4 % (0.0-6.0); HEMATOCRIT 28 % (39-51); HEMOGLOBIN 8.7 g/dL (13.5-17.5); LYMPHOCYTES # (AUTO) 1.4 /CMM (0.8-4.8); LYMPHOCYTES % (AUTO) 9.5 % (20.0-44.0); MEAN CORPUSCULAR HEMOGLOBIN 27 PG (26.0-33.0); MEAN CORPUSCULAR HGB CONC 31 g/dl (31.0-36.0); MEAN CORPUSCULAR VOLUME 86 fL (80-96); MONOCYTES # (AUTO) 0.6 /CMM (0.1-1.30); MONOCYTES % (AUTO) 3.8 % (2.0-12.0); NEUTROPHILS # (AUTO) 12.3 /CMM (1.8-8.9); NEUTROPHILS % (AUTO) 81.2 % (43.0-81.0); PLATELET COUNT (AUTO) 537 /CMM (150-450); RDW COEFFICIENT OF VARIATION 20.4 (11.5-15.0); RED BLOOD CELL COUNT(AUTO) 3.24 MIL/uL (4.5-6.0); WHITE BLOOD COUNT (AUTO) 15.1 K/uL (4.3-11.0)
[2017-10-12 08:00] VITALS: BP 103/60
[2017-10-12 08:03] LABS: CALCIUM, SERUM 9.2 mg/dL (8.5-10.1); CREATININE 0.2 mg/dL (0.6-1.3); MAGNESIUM 2.1 mg/dL (1.8-2.4); POTASSIUM 4.6 mmol/L (3.5-5.1)
[2017-10-12] MEDS: BACLOFEN (10 MG) 10 MG TABLET GT SCH ×2 (09:06→17:20)
[2017-10-12] MEDS: FERROUS SULFATE UDC 300 MG/5 ML UDC GT SCH ×3 (09:06→17:20)
[2017-10-12] MEDS: DOCUSATE SODIUM LIQ 100 MG/10 ML UDC GT SCH (09:06)
[2017-10-12] MEDS: ZINC SULFATE 220 MG CAPSULE GT SCH (09:07)
[2017-10-12] MEDS: MULTIVITAMINS,THERAGRAN 1 UDTAB TABLET GT SCH (09:07)
[2017-10-12] MEDS: FAMOTIDINE (20 MG) 20 MG TABLET GT SCH (09:07)
[2017-10-12] MEDS: LACTOBACILLUS RHAMNOSUS GG 1 EACH CAP.SPRINK PO SCH ×2 (09:07→17:20)
[2017-10-12] MEDS: SENNOSIDES 8.6 MG TABLET GT SCH ×2 (09:07→21:42)
[2017-10-12] MEDS: ASCORBIC ACID 500 MG TABLET GT SCH (09:07)
[2017-10-12] MEDS: NEOMY SULF/BACITRAC ZN/POLY 15 GM TUBE TP SCH (09:07)
[2017-10-12] MEDS: CLOPIDOGREL BISULFATE 75 MG TABLET PO SCH (09:07)
[2017-10-12] MEDS: MIDODRINE HCL (5MG) 5 MG TABLET GT SCH ×3 (09:08→17:20)
[2017-10-12] MEDS: PROSOURCE / PROSTAT (PYXIS) 30 ML UDC GT SCH (09:11)
[2017-10-12] MEDS: ENOXAPARIN SODIUM 40 MG/0.4 ML DISP.SYRIN SQ SCH (09:11)
[2017-10-12] MEDS: SORBITOL SOLUTION 30 ML GT SCH ×2 (09:14→21:42)
[2017-10-12] MEDS: HYDROCODONE/APAP 5/325MG 1 EACH TABLET GT SCH ×2 (09:14→21:43)
[2017-10-12] MEDS: DAKINS QUARTER STRENGTH (0.125%) 480 ML BOTTLE TOP SCH ×2 (09:15→17:22)
[2017-10-12 12:00] VITALS: BP 114/67
[2017-10-12] MEDS: FIBERSOURCE HN 1,000 ML BOTTLE GT PRN (12:22)
[2017-10-12 16:00] VITALS: BP 106/64
--- NOTE | 2017-10-12 16:35 | NUR ---
RT NOTE: PATIENT RECEIVED TRACHED ON PB 840 VENT. ALARMS VERIFIED AND AUDIBLE. SUCTIONED AND LAVAGED SMALL-MODERATE AMOUNT OF THICK CLEAR/WHITE SECRETIONS. VENT PLUGGED INTO RED OUTLET. AMBU BAG AT [facility].
[2017-10-12] MEDS: IV NS 0.9% 1,000 ML IV PRN (17:19)
--- NOTE | 2017-10-12 19:53 | NUR ---
RN NOTES NO ACUTE CHANGES NOTED. PT TOLERATED MV SETTINGS VIA TRACH, NO SOB. ON TELEMONITOR, STILL SHOWS SINUS TACHY 111. ON CONTINOUS TUBE FEEDING OF FIBERSOURCE @ 60 CC/HR TOLERATED WELL. NO RESIDUAL. 2 IV LINE ACCESS: R AC G20 AND PETER MIDLINE, KEPT PATENT & INTACT W/ NO S/SX OF INFECTION/INFILTRATION NOTED, PETER MIDLINE WITH NS @ 70 CC/HR INFUSING WELL. TURNED AND REPOSITIONED EVERY 2 HOURS AND PRN, SKIN CARE RENDERED, WOUND TREATMENT RENDERED, NEEDS ATTENDED. BED KEPT LOW & IN LOCKED POS. CALL LIGHT PLACED W/IN REACH. ENDORSED TO MOTORIZED SQUAD SERGEANT FOR ALEXIA.
--- NOTE | 2017-10-12 19:54 | NUR ---
RCVD PT ON VENT WITH NOTED SETTINGS, BREATHING TX GIVEN PER MD'S ORDER, NO ADVERSE REACTION NOTED. SUCTIONED MODERATE AMOUNT OF THICK YELLOW SECRETIONS WITH TINGED BLOOD. VENT PLUGGED INTO RED OUTLET, VENT ALARM WORKING AND AUDIBLE. AMBU BAG AT BEDSIDE. WILL CONTINUE TO MONITOR THE PT.
[2017-10-12 20:00] VITALS: BP 123/73
[2017-10-13] VITALS (7 sets, daily range): BP systolic 84–115; BP diastolic 54–73
[2017-10-13] MEDS: PIPERACILLIN /TAZOBACTAM 3.375 G in IV NS 0.9% 50 ML IV SCH ×4 (01:39→18:15)
[2017-10-13] MEDS: IPRATROPIUM NEB FS 0.5 MG/2.5 ML AMPUL.NEB NEB SCH ×6 (03:54→23:46)
[2017-10-13] MEDS: VANCOMYCIN 1 GM in IV D5W 250 ML IV SCH ×2 (05:16→13:00)
[2017-10-13 07:11] LABS: CALCIUM, SERUM 9.1 mg/dL (8.5-10.1); CREATININE 0.2 mg/dL (0.6-1.3); MAGNESIUM 2.3 mg/dL (1.8-2.4); PHOSPHORUS 3.9 mg/dL (2.5-4.9); POTASSIUM 4.2 mmol/L (3.5-5.1)
[2017-10-13 07:14] LABS: BASOPHILS % (AUTO) 0.3 % (0.0-2.0); EOSINOPHILS # (AUTO) 0.7 /CMM (0.0-0.7); EOSINOPHILS % (AUTO) 4.5 % (0.0-6.0); HEMATOCRIT 28 % (39-51); HEMOGLOBIN 8.8 g/dL (13.5-17.5); LYMPHOCYTES # (AUTO) 1.4 /CMM (0.8-4.8); LYMPHOCYTES % (AUTO) 9.3 % (20.0-44.0); MEAN CORPUSCULAR HEMOGLOBIN 27 PG (26.0-33.0); MEAN CORPUSCULAR HGB CONC 32 g/dl (31.0-36.0); MEAN CORPUSCULAR VOLUME 86 fL (80-96); MONOCYTES # (AUTO) 0.4 /CMM (0.1-1.30); MONOCYTES % (AUTO) 2.8 % (2.0-12.0); NEUTROPHILS # (AUTO) 12.4 /CMM (1.8-8.9); NEUTROPHILS % (AUTO) 83.1 % (43.0-81.0); PLATELET COUNT (AUTO) 561 /CMM (150-450); RDW COEFFICIENT OF VARIATION 21.2 (11.5-15.0); RED BLOOD CELL COUNT(AUTO) 3.24 MIL/uL (4.5-6.0); WHITE BLOOD COUNT (AUTO) 14.9 K/uL (4.3-11.0)
--- NOTE | 2017-10-13 07:17 | NUR ---
RN NOTE PT REMAINS IN NO ACUTE DISTRESS IN BED. PT DID NOT HAVE ANY SIGNIFICANT CHANGE IN CONDITION DURING SHIFT. PT TOLERATED VENT SETTING WELL. ALL NEEDS MET, ALL ORDERS CARRIED OUT. WILL ENDORSE CARE TO AM RN FOR CONTINUITY OF CARE.
[2017-10-13] MEDS: SORBITOL SOLUTION 30 ML GT SCH ×2 (09:05→20:59)
[2017-10-13] MEDS: DOCUSATE SODIUM LIQ 100 MG/10 ML UDC GT SCH (09:05)
[2017-10-13] MEDS: MIDODRINE HCL (5MG) 5 MG TABLET GT SCH ×3 (09:06→16:23)
[2017-10-13] MEDS: HYDROCODONE/APAP 5/325MG 1 EACH TABLET GT SCH ×2 (09:06→20:59)
[2017-10-13] MEDS: BACLOFEN (10 MG) 10 MG TABLET GT SCH ×2 (09:06→16:22)
[2017-10-13] MEDS: ZINC SULFATE 220 MG CAPSULE GT SCH (09:07)
[2017-10-13] MEDS: FAMOTIDINE (20 MG) 20 MG TABLET GT SCH (09:07)
[2017-10-13] MEDS: CLOPIDOGREL BISULFATE 75 MG TABLET PO SCH (09:07)
[2017-10-13] MEDS: ENOXAPARIN SODIUM 40 MG/0.4 ML DISP.SYRIN SQ SCH (09:07)
[2017-10-13] MEDS: PROSOURCE / PROSTAT (PYXIS) 30 ML UDC GT SCH (09:08)
[2017-10-13] MEDS: LACTOBACILLUS RHAMNOSUS GG 1 EACH CAP.SPRINK PO SCH ×2 (09:08→16:26)
[2017-10-13] MEDS: ASCORBIC ACID 500 MG TABLET GT SCH (09:08)
[2017-10-13] MEDS: MULTIVITAMINS,THERAGRAN 1 UDTAB TABLET GT SCH (09:08)
[2017-10-13] MEDS: DAKINS QUARTER STRENGTH (0.125%) 480 ML BOTTLE TOP SCH ×2 (09:09→16:27)
[2017-10-13] MEDS: FERROUS SULFATE UDC 300 MG/5 ML UDC GT SCH ×3 (09:16→16:22)
[2017-10-13] MEDS: SENNOSIDES 8.6 MG TABLET GT SCH ×2 (09:16→20:59)
--- NOTE | 2017-10-13 09:42 | NUR ---
RN NOTES PT SEEN BY PT; LEFT FLANK RASHES ASSESSED AND SCRAPING DONE BY MARTY PRADO
[2017-10-13] MEDS: IV NS 0.9% 1,000 ML IV PRN (12:31)
--- NOTE | 2017-10-13 13:07 | NUR ---
JOSE QUAN TROUGH LEVEL = 30; DOSE HELD PER INSTRUCTION
[2017-10-13] MEDS: NEOMY SULF/BACITRAC ZN/POLY 15 GM TUBE TP SCH (16:22)
[2017-10-13] MEDS: ACETAMINOPHEN 650 MG/20.3 ML UDC GT PRN (16:22)
--- NOTE | 2017-10-13 19:20 | NUR ---
RN CLOSING NOTES ENDORSED PT IN STABLE CONDITION. TURNED AND REPOSITIONED , BOTH HEELS KEPT OFFLOADED. HOB KEPT ELEVATED AT ALL TIMES; ASPIRATION PRECAUTION OBSERVED. ALL MEDS GIVEN THRU PATENT GT AND FLUSHED ORDERED.WOUND CARE DONE DIRECTED
[2017-10-13] MEDS: MEROPENEM 500 MG in IV NS 0.9% 50 ML IV SCH (20:58)
[2017-10-14] VITALS (9 sets, daily range): BP systolic 97–141; BP diastolic 66–79
[2017-10-14] MEDS: IPRATROPIUM NEB FS 0.5 MG/2.5 ML AMPUL.NEB NEB SCH ×5 (04:00→19:43)
[2017-10-14] MEDS: MEROPENEM 500 MG in IV NS 0.9% 50 ML IV SCH ×3 (04:20→21:36)
[2017-10-14] MEDS: FIBERSOURCE HN 1,000 ML BOTTLE GT PRN (04:22)
[2017-10-14] MEDS: HYDROCODONE/APAP 5/325MG 1 EACH TABLET GT PRN (04:22)
[2017-10-14] MEDS: VANCOMYCIN 1 GM in IV D5W 250 ML IV SCH (05:11)
[2017-10-14] MEDS: IV NS 0.9% 1,000 ML IV PRN (05:11)
[2017-10-14 07:56] LABS: BASOPHILS # (AUTO) 0.1 /CMM (0.0-0.2); BASOPHILS % (AUTO) 0.3 % (0.0-2.0); EOSINOPHILS # (AUTO) 0.8 /CMM (0.0-0.7); HEMATOCRIT 27 % (39-51); HEMOGLOBIN 8.6 g/dL (13.5-17.5); LYMPHOCYTES # (AUTO) 1.8 /CMM (0.8-4.8); LYMPHOCYTES % (AUTO) 10.8 % (20.0-44.0); MEAN CORPUSCULAR HEMOGLOBIN 27 PG (26.0-33.0); MEAN CORPUSCULAR HGB CONC 32 g/dl (31.0-36.0); MEAN CORPUSCULAR VOLUME 85 fL (80-96); MONOCYTES # (AUTO) 0.8 /CMM (0.1-1.30); MONOCYTES % (AUTO) 4.7 % (2.0-12.0); NEUTROPHILS # (AUTO) 12.9 /CMM (1.8-8.9); NEUTROPHILS % (AUTO) 79.2 % (43.0-81.0); PLATELET COUNT (AUTO) 592 /CMM (150-450); RDW COEFFICIENT OF VARIATION 20.9 (11.5-15.0); RED BLOOD CELL COUNT(AUTO) 3.21 MIL/uL (4.5-6.0); WHITE BLOOD COUNT (AUTO) 16.4 K/uL (4.3-11.0)
[2017-10-14 08:04] LABS: CALCIUM, SERUM 9.2 mg/dL (8.5-10.1); CREATININE 0.2 mg/dL (0.6-1.3); MAGNESIUM 2.3 mg/dL (1.8-2.4); PHOSPHORUS 3.8 mg/dL (2.5-4.9); POTASSIUM 4.4 mmol/L (3.5-5.1)
[2017-10-14] MEDS: FERROUS SULFATE UDC 300 MG/5 ML UDC GT SCH ×3 (09:52→18:05)
[2017-10-14] MEDS: ZINC SULFATE 220 MG CAPSULE GT SCH (09:52)
[2017-10-14] MEDS: DOCUSATE SODIUM LIQ 100 MG/10 ML UDC GT SCH (09:52)
[2017-10-14] MEDS: LACTOBACILLUS RHAMNOSUS GG 1 EACH CAP.SPRINK PO SCH ×2 (09:52→18:05)
[2017-10-14] MEDS: MIDODRINE HCL (5MG) 5 MG TABLET GT SCH ×3 (09:53→17:00)
[2017-10-14] MEDS: BACLOFEN (10 MG) 10 MG TABLET GT SCH ×2 (09:53→18:05)
[2017-10-14] MEDS: FAMOTIDINE (20 MG) 20 MG TABLET GT SCH (09:53)
[2017-10-14] MEDS: SENNOSIDES 8.6 MG TABLET GT SCH ×2 (09:53→21:36)
[2017-10-14] MEDS: ASCORBIC ACID 500 MG TABLET GT SCH (09:53)
[2017-10-14] MEDS: MULTIVITAMINS,THERAGRAN 1 UDTAB TABLET GT SCH (09:53)
[2017-10-14] MEDS: CLOPIDOGREL BISULFATE 75 MG TABLET PO SCH (09:53)
[2017-10-14] MEDS: PROSOURCE / PROSTAT (PYXIS) 30 ML UDC GT SCH (09:53)
[2017-10-14] MEDS: HYDROCODONE/APAP 5/325MG 1 EACH TABLET GT SCH ×2 (09:54→21:37)
[2017-10-14] MEDS: ENOXAPARIN SODIUM 40 MG/0.4 ML DISP.SYRIN SQ SCH (09:59)
[2017-10-14] MEDS: DAKINS QUARTER STRENGTH (0.125%) 480 ML BOTTLE TOP SCH ×2 (10:02→18:06)
[2017-10-14] MEDS: NEOMY SULF/BACITRAC ZN/POLY 15 GM TUBE TP SCH (10:03)
[2017-10-14] MEDS: SORBITOL SOLUTION 30 ML GT SCH ×2 (10:17→21:37)
--- NOTE | 2017-10-14 19:30 | NUR ---
TIRE BUFFER INITIAL NOTE PT RECEIVED AWAKE IN BED. OPEN EYES AND NON VERBAL. ON MECH VENT WITH SETTINGS WELL TOLERATED. TELE- SINUS TACH 112. HOB ELEVATED. GTUBE FEEDING WELL TOLERATED AND NO RESIDUALS NOTED. IV PETER MIDLINE CLEAN AND DRY WITH FLUIDS INFUSING. HART CATHETER IN PLACE AND DRAINING BY GRAVITY. ISOLATION PRECAUTIONS OBSERVED. WILL CONTINUE TO MONITOR.
[2017-10-15] VITALS: BP 113/76
[2017-10-15] MEDS: IPRATROPIUM NEB FS 0.5 MG/2.5 ML AMPUL.NEB NEB SCH ×7 (00:07→23:34)
[2017-10-15] MEDS: FIBERSOURCE HN 1,000 ML BOTTLE GT PRN ×2 (00:10→18:04)
[2017-10-15] MEDS: IV NS 0.9% 1,000 ML IV PRN ×2 (00:10→18:04)
[2017-10-15 04:00] VITALS: BP 110/75
[2017-10-15] MEDS: MEROPENEM 500 MG in IV NS 0.9% 50 ML IV SCH ×3 (04:37→21:16)
[2017-10-15] MEDS: VANCOMYCIN 1 GM in IV D5W 250 ML IV SCH (05:19)
[2017-10-15 07:07] LABS: CALCIUM, SERUM 9.5 mg/dL (8.5-10.1); CREATININE 0.3 mg/dL (0.6-1.3); POTASSIUM 4.2 mmol/L (3.5-5.1)
--- NOTE | 2017-10-15 07:26 | NUR ---
STRIPING MACHINE OPERATOR CLOSING NOTE PT REMAINED STABLE DURING THE SHIFT. NO ACUTE DISTRESS NOTED. VENT SETTINGS WELL TOLERATED. HOB ELEVATED. CONTACT ISOLATION OBSERVED. ALL NEEDS ATTENDED TO PROMPTLY. KEPT CLEAN AND DRY. REPOSITIONED Q2H. WILL ENDORSE TO NEXT SHIFT FOR CONTINUITY OF CARE.
[2017-10-15 08:00] VITALS: BP 122/76
--- NOTE | 2017-10-15 08:03 | NUR ---
SHAMPOO PERSON OPENING NOTES RECEIVED PT FROM NIGHTSWVFT NURSE IN STABLE CONDITION. PT IS NONVERBAL, OPENS EYES SPONTANEOUSLY. PT ON MECHANICAL VENT, AND TOLERATING WELL. VENT SETTINGS SET ORDERED. HE IS SINU TACH ON THE TELE MONITOR WITH A HR OF 109. GTUBE NOTED TO BE INFUSING ORDERED. PT TOLERATING FEEDING WELL. PLACEMENT VERIFIED VIA AUSCULTATION. MIDLINE NOTED TO PETER. NO REDNESS OR SIGNS OF INFILTRATION NOTED. HART CATHETER NOTED OT BE DRAINING CLEAR YELLOW URINE. BED IN LOW LOCKED POSITION, SIDE RAILS UP X3, CALL LIGHT WITHIN REACH, BED ALARM ON, ISOLATION PRECAUTIONS OBSERVED. WILL CONTINUE TO MONITOR.
[2017-10-15] MEDS: MULTIVITAMINS,THERAGRAN 1 UDTAB TABLET GT SCH (09:24)
[2017-10-15] MEDS: BACLOFEN (10 MG) 10 MG TABLET GT SCH ×2 (09:24→18:07)
[2017-10-15] MEDS: FERROUS SULFATE UDC 300 MG/5 ML UDC GT SCH ×3 (09:24→18:07)
[2017-10-15] MEDS: HYDROCODONE/APAP 5/325MG 1 EACH TABLET GT SCH ×2 (09:24→21:18)
[2017-10-15] MEDS: FAMOTIDINE (20 MG) 20 MG TABLET GT SCH (09:24)
[2017-10-15] MEDS: SENNOSIDES 8.6 MG TABLET GT SCH ×2 (09:25→21:17)
[2017-10-15] MEDS: ZINC SULFATE 220 MG CAPSULE GT SCH (09:25)
[2017-10-15] MEDS: SORBITOL SOLUTION 30 ML GT SCH ×2 (09:25→21:18)
[2017-10-15] MEDS: MIDODRINE HCL (5MG) 5 MG TABLET GT SCH ×3 (09:25→18:07)
[2017-10-15] MEDS: ASCORBIC ACID 500 MG TABLET GT SCH (09:25)
[2017-10-15] MEDS: CLOPIDOGREL BISULFATE 75 MG TABLET PO SCH (09:25)
[2017-10-15] MEDS: LACTOBACILLUS RHAMNOSUS GG 1 EACH CAP.SPRINK PO SCH ×2 (09:25→18:07)
[2017-10-15] MEDS: DOCUSATE SODIUM LIQ 100 MG/10 ML UDC GT SCH (09:25)
[2017-10-15] MEDS: PROSOURCE / PROSTAT (PYXIS) 30 ML UDC GT SCH (09:25)
[2017-10-15] MEDS: DAKINS QUARTER STRENGTH (0.125%) 480 ML BOTTLE TOP SCH ×2 (09:26→18:13)
[2017-10-15] MEDS: NEOMY SULF/BACITRAC ZN/POLY 15 GM TUBE TP SCH (09:27)
[2017-10-15] MEDS: ENOXAPARIN SODIUM 40 MG/0.4 ML DISP.SYRIN SQ SCH (09:29)
[2017-10-15 12:00] VITALS: BP 130/66
[2017-10-15 16:00] VITALS: BP 114/71
[2017-10-15] MEDS ORDERED: RXVAN XX (18:21)
[2017-10-15] MEDS ORDERED: MERO500V IV (18:21)
--- NOTE | 2017-10-15 18:51 | NUR ---
ALUMINUM SHEET CUTTER CLOSING NOTES PT REMAINS IN STABLE CONDITION. ALL NEEDS ANTICIPATED AND MET DURING SHIFT. WOUND AND SKIN CARE RENDERED ORDERED. CATHETER CARE RENDERED. PT HAD A TOTAL OF 1700CC OUTPUT. REPOSITIONING PROVIDED PER PROTOCOL. PT WAS KEPT CLEAN AND DRY THROUGHOUT SHIFT. GTUBE REMAINS PATENT AND INTACT. NO RESIDUALS AT THIS TIME. PT CONTINUES TO TOLERATE FEEDING WELL. SAFETY MEASURES REMAIN IN PLACE. ISOLATION PRECAUTIONS OBSERVED. WILL ENDORSE TO NIGHTSHIFT NURSE FOR ALEXIA .
[2017-10-15 20:00] VITALS: BP 133/73
--- NOTE | 2017-10-15 21:47 | NUR ---
PT RECEIVED TRACHED ON 840 VENT. NO RESP DISTRESS NOTED. PT TOLERATING VENT SETTINGS. SX'D AND LAVAGED FOR MOD AMT OF THICK YELLOW SECRETIONS. VENT ALARMS SET AND AUDIBLE. AMBU BAG AT BEDSIDE. VENT PLUGGED INTO RED OUTLET. WILL CONTINUE TO MONITOR. Addendum: 10/15/17 at 2148 by MIO SANTOS RT Amended: Links added.
[2017-10-16] VITALS: BP 108/75
[2017-10-16] MEDS: IPRATROPIUM NEB FS 0.5 MG/2.5 ML AMPUL.NEB NEB SCH ×5 (03:20→19:51)
[2017-10-16 04:00] VITALS: BP 100/73
[2017-10-16] MEDS: MEROPENEM 500 MG in IV NS 0.9% 50 ML IV SCH ×2 (05:37→12:15)
[2017-10-16] MEDS: HYDROCODONE/APAP 5/325MG 1 EACH TABLET GT PRN (05:38)
[2017-10-16 05:49] LABS: CALCIUM, SERUM 9.7 mg/dL (8.5-10.1); CREATININE 0.3 mg/dL (0.6-1.3); POTASSIUM 4.1 mmol/L (3.5-5.1)
[2017-10-16] MEDS: VANCOMYCIN 1 GM in IV D5W 250 ML IV SCH (06:09)
--- NOTE | 2017-10-16 07:50 | NUR ---
MONORAIL HELPER INITIAL NOTES RN RECEIVED PT IN BED NONVERBAL, ABLE TO MAKE NEEDS KNOWN PT OPENS EYES SPONTANEOUSLY. PT ON MECHANICAL VENT, AND TOLERATING WELL. VENT SETTINGS SET ORDERED. TELE- SINUS TACH. G-TUBE NOTED CLEAN DRY AND INTACT INFUSING ORDERED NO RESIDUALS NOTED . PT TOLERATING FEEDING WELL. MIDLINE C/D/I PETER. NO REDNESS OR SIGNS OF INFILTRATION NOTED. HART CATHETER NOTED DRAINING CLEAR YELLOW URINE. BED IN LOW LOCKED POSITION, SIDE RAILS UP X3, CALL LIGHT WITHIN REACH, BED ALARM ON, ISOLATION PRECAUTIONS OBSERVED. RN WILL CONTINUE TO MONITOR THROUGHOUT THE DAY .
[2017-10-16 08:00] VITALS: BP 114/72
[2017-10-16] MEDS: LACTOBACILLUS RHAMNOSUS GG 1 EACH CAP.SPRINK PO SCH ×2 (08:09→17:45)
[2017-10-16] MEDS: DOCUSATE SODIUM LIQ 100 MG/10 ML UDC GT SCH (08:09)
[2017-10-16] MEDS: CLOPIDOGREL BISULFATE 75 MG TABLET PO SCH (08:09)
[2017-10-16] MEDS: BACLOFEN (10 MG) 10 MG TABLET GT SCH ×2 (08:09→17:45)
[2017-10-16] MEDS: MIDODRINE HCL (5MG) 5 MG TABLET GT SCH ×3 (08:09→17:45)
[2017-10-16] MEDS: HYDROCODONE/APAP 5/325MG 1 EACH TABLET GT SCH (08:09)
[2017-10-16] MEDS: FERROUS SULFATE UDC 300 MG/5 ML UDC GT SCH ×3 (08:09→17:45)
[2017-10-16] MEDS: SORBITOL SOLUTION 30 ML GT SCH (08:09)
[2017-10-16] MEDS: ZINC SULFATE 220 MG CAPSULE GT SCH (08:09)
[2017-10-16] MEDS: SENNOSIDES 8.6 MG TABLET GT SCH (08:09)
[2017-10-16] MEDS: FAMOTIDINE (20 MG) 20 MG TABLET GT SCH (08:09)
[2017-10-16] MEDS: MULTIVITAMINS,THERAGRAN 1 UDTAB TABLET GT SCH (08:10)
[2017-10-16] MEDS: DAKINS QUARTER STRENGTH (0.125%) 480 ML BOTTLE TOP SCH ×2 (08:10→17:46)
[2017-10-16] MEDS: ASCORBIC ACID 500 MG TABLET GT SCH (08:10)
[2017-10-16] MEDS: NEOMY SULF/BACITRAC ZN/POLY 15 GM TUBE TP SCH (08:11)
[2017-10-16] MEDS: PROSOURCE / PROSTAT (PYXIS) 30 ML UDC GT SCH (08:19)
[2017-10-16] MEDS: ENOXAPARIN SODIUM 40 MG/0.4 ML DISP.SYRIN SQ SCH (08:19)
[2017-10-16 12:00] VITALS: BP 90/63
[2017-10-16] MEDS: ACETAMINOPHEN 650 MG/20.3 ML UDC GT PRN (12:15)
[2017-10-16 13:32] LABS: BASOPHILS # (AUTO) 0.1 /CMM (0.0-0.2); BASOPHILS % (AUTO) 0.5 % (0.0-2.0); EOSINOPHILS # (AUTO) 0.6 /CMM (0.0-0.7); EOSINOPHILS % (AUTO) 4.6 % (0.0-6.0); HEMATOCRIT 28 % (39-51); HEMOGLOBIN 8.7 g/dL (13.5-17.5); LYMPHOCYTES % (AUTO) 15.6 % (20.0-44.0); MEAN CORPUSCULAR HEMOGLOBIN 27 PG (26.0-33.0); MEAN CORPUSCULAR HGB CONC 32 g/dl (31.0-36.0); MEAN CORPUSCULAR VOLUME 84 fL (80-96); MONOCYTES # (AUTO) 0.5 /CMM (0.1-1.30); MONOCYTES % (AUTO) 4.4 % (2.0-12.0); NEUTROPHILS # (AUTO) 9.4 /CMM (1.8-8.9); NEUTROPHILS % (AUTO) 74.9 % (43.0-81.0); PLATELET COUNT (AUTO) 608 /CMM (150-450); RDW COEFFICIENT OF VARIATION 20.1 (11.5-15.0); RED BLOOD CELL COUNT(AUTO) 3.27 MIL/uL (4.5-6.0); WHITE BLOOD COUNT (AUTO) 12.6 K/uL (4.3-11.0)
[2017-10-16 16:00] VITALS: BP_SYST 114; BP_SYST 92; BP_DIAS 60; BP_DIAS 73
[2017-10-16 17:45] VITALS: BP 100/68
[2017-10-16] MEDS ORDERED: VANCOMYCIN 1 GM in IV NS 0.9% 250 ML IV SCH (18:00)
--- NOTE | 2017-10-16 18:25 | NUR ---
RN CLOSING NOTE PATIENT HAS EXPERIENCED DECREASED BLOOD PRESSURE THROUGHOUT THE DAY , HOWEVER PATIENT RECEIVED FLUID 70ML/HR PATIENT HAS BEEN TURNED AND REPOSITIONED Q 2HRS PATIENT LABS MONITORED AND ASSESSED PATIENT HAS REMAINED IN STABLE CONDITION THROUGHOUT THE DAY NO SOB NOTED TOLERATED VENT SETTINGS WELL , DRESSING CHANGED DISCHARGE WILL BE ENDORSED TOO NEXT SHIFT
--- NOTE | 2017-10-16 19:15 | NUR ---
RN NOTE RN SPOKE WITH NURSE TEST DESIGNER BLACK IN REGARD TO PATIENT DISCHARGE STATES SHE WILL CALL PM RN WHEN DISCHARGE IS READY. PATIENT IS STABLE PM RN NOTIFIED PATIENT PICTURE ENDORSED TO PM RN GERSON WHO ACKNOWLEDGED SHE WILL COMPLETE D/C PICTURES
--- NOTE | 2017-10-16 20:24 | NUR ---
RN NOTES RECEIVED REPORT FROM BRYAN PT TO BE TRANSFERRED TO SUBACUTE. PT IN BED NONVERBAL, ABLE TO MAKE NEEDS KNOWN PT OPENS EYES SPONTANEOUSLY. PT ON MECHANICAL VENT, AND TOLERATING WELL. VENT SETTINGS SET ORDERED. TELE- SINUS TACH. G-TUBE NOTED CLEAN DRY AND INTACT INFUSING ORDERED NO RESIDUAL. PT TOLERATING FEEDING WELL. MIDLINE C/D/I PETER. NO REDNESS OR SIGNS OF INFILTRATION NOTED. HART CATHETER NOTED DRAINING CLEAR YELLOW URINE. BED IN LOW LOCKED POSITION, SIDE RAILS UP X3, CALL LIGHT WITHIN REACH, BED ALARM ON, ISOLATION PRECAUTIONS OBSERVED. RN WILL CONTINUE TO MONITOR AND TRANSFER PT .
--- NOTE | 2017-10-16 20:27 | NUR ---
RN NOTES REPORT GIVEN TO DANIEL IN SUB ACUTE, PT GOING TO ROOM 274.
--- NOTE | 2017-10-16 20:28 | NUR ---
PT TRANSFERRED TO SUB- ACUTE. BY RN, COORDINATOR VOLUNTEER SERVICES JUAN AND RT.
== END 2017-10-16 20:10 | DRG 710 ==
LOC: ER 20:59 → ICU 23:38 → TELE-TD 10-08 18:06 → TELE1 10-10 11:50
PROVIDERS: ADMIT Nurse Practitioner Acute Care; ATTEND Nurse Practitioner Acute Care
DX: A41.9 Sepsis, unspecified organism (principal); J96.21 Acute and chronic respiratory failure with hypoxia; R65.21 Severe sepsis with septic shock; J69.0 Pneumonitis due to inhalation of food and vomit; G93.41 Metabolic encephalopathy; E43 Unspecified severe protein-calorie malnutrition; G12.21 Amyotrophic lateral sclerosis; L89.154 Pressure ulcer of sacral region, stage 4; L89.894 Pressure ulcer of other site, stage 4; J95.851 Ventilator associated pneumonia; Z99.11 Dependence on respirator [ventilator] status; Z93.0 Tracheostomy status; D68.59 Other primary thrombophilia; E86.0 Dehydration; J96.22 Acute and chronic respiratory failure with hypercapnia; D63.8 Anemia in other chronic diseases classified elsewhere; K21.9 Gastro-esophageal reflux disease without esophagitis; Y84.8 Other medical procedures as the cause of abnormal reaction of the patient, or of later complication, without mention of misadventure at the time of the procedure; R53.2 Functional quadriplegia; Z93.1 Gastrostomy status; R62.7 Adult failure to thrive; R13.10 Dysphagia, unspecified; I69.959 Hemiplegia and hemiparesis following unspecified cerebrovascular disease affecting unspecified side; D72.825 Bandemia; D72.829 Elevated white blood cell count, unspecified; N39.0 Urinary tract infection, site not specified; B95.62 Methicillin resistant Staphylococcus aureus infection as the cause of diseases classified elsewhere; Z74.01 Bed confinement status
CPT/HCPCS: 31720; 36415; 36569; 36600; 71045-TC; 80048-TC; 80053-TC; 80061-TC; 80076-TC; 80202-TC; 81000-TC; 82272-TC; 82803-TC; 83540-TC; 83605-TC; 83735-TC; 83880; 84100-TC; 84134-TC; 84443-TC; 84484-TC; 85025-TC; 85730-TC; 87040-TC; 87070-TC; 87081-TC; 87086-TC; 87186-TC; 87400; 94002-TC; 94003-TC; 94760-TC; 94762-TC; 99082-TC; A4216; A4606; A6248; A6253; A6402; A6403; J1650; J2185; J2270; J2543; J3370; J3490; J7030; J7040; J7050; J7060; Z7610

== ENCOUNTER 2017-10-16 20:11 | Inpatient (IN) | payer OTHER ==
[~2017-10-16] VITALS: Ht 180.3 cm; Wt 60.8 kg
[~2017-10-16 20:11] MED LIST: ACET-73 GT; ACET325T53 GT; ALBU2.5V38 IH; AMIN30LI2 GT; ASCO500T9 GT; BACL10TA GT; BISA10SU61 RC; CLOP75TA15 GT; CRAN3875 GT; DOCU50LI GT; ENOX40DI SQ; EPOE4000 SQ; FAMO40TA7 GT; FERR220S2 GT; HYDR-552 GT; IPRA0.2S9 IH; MAGN400O6 GT; MERO500V IV; METO25TA6 GT; MIDO5TAB GT; MULT-594 GT; NA P133E RC; RXVAN XX; SACC250C GT; SENN-167 GT; SORB30SO2 GT; ZINC220C6 GT
[2017-10-16 20:30] VITALS: BP 114/78
[2017-10-16] MEDS ORDERED: ALBUTEROL FS 2.5 MG/3 ML VIAL.NEB NEB PRN (21:00)
[2017-10-16] MEDS ORDERED: ALBUTEROL FS 2.5 MG/3 ML VIAL.NEB IH PRN (21:00)
[2017-10-16] MEDS ORDERED: BISACODYL SUPP (10 MG) 10 MG/SUPP.RECT SUPP.RECT RC PRN (21:00)
[2017-10-16] MEDS ORDERED: IPRATROPIUM NEB FS 0.5 MG/2.5 ML AMPUL.NEB IH PRN (21:30)
[2017-10-16] MEDS ORDERED: VANCOMYCIN 1 GM in IV NS 0.9% 250 ML IV SCH (21:30)
[2017-10-16] MEDS ORDERED: NA PHOS,M-B/NA PHOS,DI-BA 1 EA ENEMA RC PRN (21:30)
[2017-10-16] MEDS ORDERED: ACETAMINOPHEN 650 MG/20.3 ML UDC GT PRN (21:30)
[2017-10-16] MEDS ORDERED: ACETAMINOPHEN ES 500 MG TABLET GT PRN (21:30)
[2017-10-16] MEDS ORDERED: MAGNESIUM HYDROXIDE 30 ML UDC GT PRN (21:30)
--- NOTE | 2017-10-16 22:00 | NUR ---
PATIENT ADMITTED FROM [facility] MALE 52YRS OLD,OPEN EYES ,NON VERBAL UNDER THE CARE OF .DNR.DX;RESPIRATORY FAILURE ON VENT AC 14,TV550,FIO2 35% PEEP 5,HART CATHETER F#[id number] CONNECTED TO DRAINAGE BAG YELLOW URINE OUTPUT,SEVERE PROTEIN MALNUTRITION,JENS-GEHRIG DISEASE,ALS,DYSPHAGIA,STAGE 4 SACRAL WOUND,STAGE 4 RIGHT PRESSURE SORE.HX OF C-DIFF,GT FEEDING ON FIBERSOURCE HN 60CC/HR X20 HRS.MEDICATIONS CLARIFIED WITH .COMPLETE BODY ASSESSMENT COMPLETED.SKIN TREATMENT INITIATED ORDERED.WOUND CONSULT ORDERED.KEPT CLEAN AND DRY.CALL WITHIN REACH.WILL CONTINUE TO MONITOR.
[2017-10-16] MEDS: FIBERSOURCE HN 1,000 ML BOTTLE GT PRN (22:30)
[2017-10-17] VITALS (7 sets, daily range): BP systolic 103–133; BP diastolic 70–84
[2017-10-17] MEDS: HYDROCODONE/APAP 5/325MG 1 EACH TABLET GT PRN ×2 (01:00→12:52)
[2017-10-17] MEDS: IPRATROPIUM NEB FS 0.5 MG/2.5 ML AMPUL.NEB NEB SCH ×4 (02:23→19:24)
[2017-10-17] MEDS: MEROPENEM 500 MG in IV NS 0.9% 50 ML IV SCH ×3 (05:00→20:54)
--- NOTE | 2017-10-17 05:00 | NUR ---
VANCOMYCIN 1 GRAM TIME CHANGE TO 0600 PER V[facility]ENT NURSE LAST DOSE WAS GIVEN AT 1800 (10/16) IT'S Q 12 HRS.
[2017-10-17] MEDS: VANCOMYCIN 1 GM in IV NS 0.9% 250 ML IV SCH ×2 (05:40→19:00)
[2017-10-17] MEDS: CLOPIDOGREL BISULFATE 75 MG TABLET PO SCH (09:00)
[2017-10-17] MEDS: DOCUSATE SODIUM LIQ 100 MG/10 ML UDC GT SCH (09:17)
[2017-10-17] MEDS: FERROUS SULFATE - FOR SA ONLY 330 MG/7.5 ML UDC GT SCH ×3 (09:18→16:40)
[2017-10-17] MEDS: BACLOFEN (10 MG) 10 MG TABLET GT SCH ×2 (09:18→16:40)
[2017-10-17] MEDS: METOPROLOL TARTRATE 25 MG TABLET GT SCH ×2 (09:19→21:29)
[2017-10-17] MEDS: CRANBERRY 405 MG GT SCH (09:19)
[2017-10-17] MEDS: FAMOTIDINE (20 MG) 20 MG TABLET GT SCH (09:20)
[2017-10-17] MEDS: MIDODRINE HCL (5MG) 5 MG TABLET GT SCH ×3 (09:20→16:41)
[2017-10-17] MEDS: ASCORBIC ACID 500 MG TABLET GT SCH (09:21)
[2017-10-17] MEDS: ZINC SULFATE 220 MG CAPSULE GT SCH (09:21)
[2017-10-17] MEDS: SORBITOL SOLUTION 30 ML GT SCH ×2 (09:21→21:30)
[2017-10-17] MEDS: MULTIVITAMINS,THERAGRAN 1 UDTAB TABLET GT SCH (09:21)
[2017-10-17] MEDS: SENNOSIDES 8.6 MG TABLET GT SCH ×2 (09:21→21:30)
[2017-10-17] MEDS: PROSOURCE / PROSTAT (PYXIS) 30 ML UDC GT SCH ×2 (09:21→16:41)
[2017-10-17] MEDS: ENOXAPARIN SODIUM 40 MG/0.4 ML DISP.SYRIN SQ SCH (09:22)
--- NOTE | 2017-10-17 10:30 | NUR ---
Notified Dr. Man of new admission and he reviewed medications. Stop date for Merrem and Vancomycin given for a total of 10 days as continuation from acute hospital. Clarified parameters for Metoprolol and Midodrine, no parameter given for Midodrine and Metoproplol to hold if SBP less than 100 or HR less than 65. Orders carried out. Dr. Man seen photographs of patient's rashes in the back stated to refer it to JAMIL Guzman. Megan Logan NP, ID notified.
[2017-10-17] MEDS ORDERED: FEE PK DOSING 1 MIN EA MC ONE (13:44)
[2017-10-17] MEDS: HYDROGEL DRESSING 90 GM TUBE TP SCH ×3 (13:52→21:55)
--- NOTE | 2017-10-17 15:00 | NUR ---
Obtained routine pain medication Ovid 5-325 mg prior to wound treatment from Dr. Man. 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 Order carried out.
--- NOTE | 2017-10-17 16:30 | NUR ---
PATIENT RECEIVED ON MECHANICAL VENTILATION. TRACH IS SECURED AND PATENT. ALARMS ON AND AUDIBLE. AMBU BAG/BACK UP TRACH @ BEDSIDE. NO SOB NOTED T/O SHIFT. HME CHANGED. Addendum: 10/17/17 at 1631 by JACINDA CANDELARIA RT Amended: Links added.
[2017-10-17] MEDS: FIBERSOURCE HN 1,000 ML BOTTLE GT PRN (16:41)
--- NOTE | 2017-10-17 16:41 | NUR ---
Resident's girlfriend Ana Sj visited made aware of new orders. Resident continue on ATB for pneumonia and sepsis, no adverse reaction. Mid line in the R upper arm patent, no s/s of infiltration.
[2017-10-17] MEDS: HYDROCODONE/APAP 5/325MG 1 EACH TABLET GT SCH (21:30)
[2017-10-17] MEDS: FLUOCINONIDE 0.05% CREAM 30 GM TUBE TP SCH (21:55)
[2017-10-17] MEDS: Z GUARD REMEDY 4 OZ OINT TP SCH ×2 (21:55)
[2017-10-17] MEDS: DAKINS HALF STRENGTH (0.25%) 480 ML BOTTLE TOP SCH (21:55)
[2017-10-17] MEDS: VITAMINS A AND D 56.7 GM TUBE TP SCH ×2 (21:55)
[2017-10-17] MEDS: ZINC OXIDE 30 GM TUBE TP SCH (21:55)
[2017-10-17] MEDS: NEOMY SULF/BACITRAC ZN/POLY 15 GM TUBE TP SCH (21:55)
[2017-10-18] MEDS: IPRATROPIUM NEB FS 0.5 MG/2.5 ML AMPUL.NEB NEB SCH ×4 (01:19→19:44)
[2017-10-18] MEDS: MEROPENEM 500 MG in IV NS 0.9% 50 ML IV SCH ×3 (05:20→21:00)
[2017-10-18 06:50] LABS: CALCIUM, SERUM 10.3 mg/dL (8.5-10.1); CREATININE 0.3 mg/dL (0.6-1.3); POTASSIUM 4.3 mmol/L (3.5-5.1)
[2017-10-18] MEDS: VANCOMYCIN 1 GM in IV NS 0.9% 250 ML IV SCH (07:12)
[2017-10-18 07:42] VITALS: BP 99/76
[2017-10-18] MEDS: DAKINS HALF STRENGTH (0.25%) 480 ML BOTTLE TOP SCH ×2 (09:00→21:00)
[2017-10-18] MEDS: DOCUSATE SODIUM LIQ 100 MG/10 ML UDC GT SCH (09:00)
[2017-10-18] MEDS: HYDROGEL DRESSING 90 GM TUBE TP SCH ×4 (09:00→21:00)
[2017-10-18] MEDS: FLUOCINONIDE 0.05% CREAM 30 GM TUBE TP SCH ×2 (09:00→21:00)
[2017-10-18] MEDS: MULTIVITAMINS,THERAGRAN 1 UDTAB TABLET GT SCH (09:00)
[2017-10-18] MEDS: MIDODRINE HCL (5MG) 5 MG TABLET GT SCH ×3 (09:00→16:28)
[2017-10-18] MEDS: CRANBERRY 405 MG GT SCH (09:00)
[2017-10-18] MEDS: ZINC OXIDE 30 GM TUBE TP SCH ×2 (09:00→21:00)
[2017-10-18] MEDS: FERROUS SULFATE - FOR SA ONLY 330 MG/7.5 ML UDC GT SCH ×3 (09:00→16:28)
[2017-10-18] MEDS: ENOXAPARIN SODIUM 40 MG/0.4 ML DISP.SYRIN SQ SCH (09:00)
[2017-10-18] MEDS: SORBITOL SOLUTION 30 ML GT SCH ×2 (09:00→21:00)
[2017-10-18] MEDS: FAMOTIDINE (20 MG) 20 MG TABLET GT SCH (09:00)
[2017-10-18] MEDS: HYDROCODONE/APAP 5/325MG 1 EACH TABLET GT SCH ×2 (09:00→21:00)
[2017-10-18] MEDS: METOPROLOL TARTRATE 25 MG TABLET GT SCH ×2 (09:00→21:00)
[2017-10-18] MEDS: ZINC SULFATE 220 MG CAPSULE GT SCH (09:00)
[2017-10-18] MEDS: NEOMY SULF/BACITRAC ZN/POLY 15 GM TUBE TP SCH ×2 (09:00→21:00)
[2017-10-18] MEDS: CLOPIDOGREL BISULFATE 75 MG TABLET PO SCH (09:00)
[2017-10-18] MEDS: PROSOURCE / PROSTAT (PYXIS) 30 ML UDC GT SCH ×2 (09:00→16:28)
[2017-10-18] MEDS: BACLOFEN (10 MG) 10 MG TABLET GT SCH ×2 (09:00→16:28)
[2017-10-18] MEDS: ASCORBIC ACID 500 MG TABLET GT SCH (09:00)
[2017-10-18] MEDS: VITAMINS A AND D 56.7 GM TUBE TP SCH ×4 (09:00→21:00)
[2017-10-18] MEDS: Z GUARD REMEDY 4 OZ OINT TP SCH ×4 (09:00→21:00)
[2017-10-18] MEDS: SENNOSIDES 8.6 MG TABLET GT SCH ×2 (09:00→21:00)
--- NOTE | 2017-10-18 09:00 | NUR ---
Cranberry tablet is not available ,not administered.Family will provide the medication.spoke to mom Gianfranco and brother lauren.
[2017-10-18] MEDS ORDERED: ALBUTEROL FS 2.5 MG/3 ML VIAL.NEB IH PRN (13:55)
--- NOTE | 2017-10-18 16:00 | NUR ---
Got new dosing from the pharmacy for vancomycin ,changed to 1g every Q18H.Pharmacy will follow up for next vanco trough as per pharmacyst MARTY.
[2017-10-18] MEDS: FIBERSOURCE HN 1,000 ML BOTTLE GT PRN (16:13)
[2017-10-18] MEDS: ALBUTEROL FS 2.5 MG/3 ML VIAL.NEB NEB SCH (19:44)
[2017-10-18 21:14] VITALS: BP 127/76
[2017-10-19] MEDS: VANCOMYCIN 1 GM in IV NS 0.9% 250 ML IV SCH ×2 (00:21→18:18)
[2017-10-19] MEDS: IPRATROPIUM NEB FS 0.5 MG/2.5 ML AMPUL.NEB NEB SCH ×4 (01:38→19:34)
[2017-10-19] MEDS: ALBUTEROL FS 2.5 MG/3 ML VIAL.NEB NEB SCH ×4 (01:38→19:34)
[2017-10-19] MEDS: MEROPENEM 500 MG in IV NS 0.9% 50 ML IV SCH ×2 (05:00→13:00)
[2017-10-19 07:49] VITALS: BP 113/75
[2017-10-19 07:57] LABS: CALCIUM, SERUM 10.3 mg/dL (8.5-10.1); CREATININE 0.3 mg/dL (0.6-1.3); POTASSIUM 4.1 mmol/L (3.5-5.1)
[2017-10-19] MEDS ORDERED: CRANBERRY GT SCH (09:00)
[2017-10-19] MEDS ORDERED: ASCORBIC ACID 100 MG GT SCH (09:00)
[2017-10-19] MEDS: NEOMY SULF/BACITRAC ZN/POLY 15 GM TUBE TP SCH ×2 (09:00→21:18)
[2017-10-19] MEDS: FLUOCINONIDE 0.05% CREAM 30 GM TUBE TP SCH ×2 (09:00→21:18)
[2017-10-19] MEDS: DOCUSATE SODIUM LIQ 100 MG/10 ML UDC GT SCH (09:44)
--- NOTE | 2017-10-19 09:44 | NUR ---
studio set up worker called the resident's mother Gianfranco Ovalle ([phone]) to see when she will be coming to the hospital to sign admission ppwk and complete biopsychosocial assessment. However, she did not answer and social services specialist left a message with her contact information. SW will attempt again at a later time.
[2017-10-19] MEDS: CRANBERRY GT SCH (09:45)
[2017-10-19] MEDS: FERROUS SULFATE - FOR SA ONLY 330 MG/7.5 ML UDC GT SCH ×3 (09:45→17:09)
[2017-10-19] MEDS: ASCORBIC ACID 100 MG GT SCH (09:45)
[2017-10-19] MEDS: BACLOFEN (10 MG) 10 MG TABLET GT SCH ×2 (09:48→17:09)
[2017-10-19] MEDS: HYDROCODONE/APAP 5/325MG 1 EACH TABLET GT SCH ×2 (09:52→21:17)
[2017-10-19] MEDS: METOPROLOL TARTRATE 25 MG TABLET GT SCH ×2 (09:52→21:17)
[2017-10-19] MEDS: FAMOTIDINE (20 MG) 20 MG TABLET GT SCH (09:52)
[2017-10-19] MEDS: ZINC SULFATE 220 MG CAPSULE GT SCH (09:53)
[2017-10-19] MEDS: PROSOURCE / PROSTAT (PYXIS) 30 ML UDC GT SCH ×2 (09:53→17:09)
[2017-10-19] MEDS: SORBITOL SOLUTION 30 ML GT SCH ×2 (09:53→21:18)
[2017-10-19] MEDS: ASCORBIC ACID 500 MG TABLET GT SCH (09:53)
[2017-10-19] MEDS: CLOPIDOGREL BISULFATE 75 MG TABLET PO SCH (09:53)
[2017-10-19] MEDS: MULTIVITAMINS,THERAGRAN 1 UDTAB TABLET GT SCH (09:53)
[2017-10-19] MEDS: SENNOSIDES 8.6 MG TABLET GT SCH ×2 (09:53→21:18)
[2017-10-19] MEDS: MIDODRINE HCL (5MG) 5 MG TABLET GT SCH ×3 (09:53→17:09)
[2017-10-19] MEDS: ENOXAPARIN SODIUM 40 MG/0.4 ML DISP.SYRIN SQ SCH (09:55)
--- NOTE | 2017-10-19 10:01 | NUR ---
WOUND CARE CONSULT: PT SEEN FOR MULTIPLE WOUNDS, PRESENT ON ADMISSION INCLUDING RT EAR CRUSTED WOUND WHICH IS BROWN IN COLOR AND MEASURES 3CM X 1CM X CRUSTED (UTD), NO DRAINAGE NOTED, NO ODOR. LEFT EAR HAS PARTIAL THICKNESS WOUND WHICH MEASURES 0.5CM X 0.5CM X 0.1CM, PINK IN COLOR, NO DRAINAGE, NO ODOR. DRY ABRASIONS NOTED TO RT SHOULDER AND SCAPULA AREAS, PRESENT ON ADMISSION. NO DRAINAGE NOTED. SACRAL WOUND IS FULL THICKNESS WITH EXPOSURE AND MEASURES 6CM X 6CM X 1CM WITH UNDERMINING OF 3.5CM FROM 10:00 TO 1:00. WOUND IS RED IN COLOR WITH SOME YELLOW TISSUE, NO ODOR NOTED AND SMALL AMOUNT OF GREEN/BROWN DRAINAGE. ALL WOUND TREATMENT ORDERS IN PLACE. CONCUR WITH WOUND ORDERS AT THIS TIME. RECOMMEND SURGICAL CONSULT/FOLLOW UP. DISCUSSED ALL SKIN PROTECTION MEASURES WITH NURSING STAFF. PT ON FIRST STEP MATTRESS. MD IN AGREEMENT WITH PLAN OF CARE.
[2017-10-19] MEDS: ZINC OXIDE 30 GM TUBE TP SCH ×2 (10:52→21:19)
[2017-10-19] MEDS: HYDROGEL DRESSING 90 GM TUBE TP SCH ×4 (10:52→21:18)
[2017-10-19] MEDS: DAKINS HALF STRENGTH (0.25%) 480 ML BOTTLE TOP SCH ×2 (10:52→21:18)
[2017-10-19] MEDS: VITAMINS A AND D 56.7 GM TUBE TP SCH ×4 (10:52→21:18)
[2017-10-19] MEDS: Z GUARD REMEDY 4 OZ OINT TP SCH ×4 (10:52→21:18)
--- NOTE | 2017-10-19 11:33 | NUR ---
KAVITA spoke to the resident's mother Adeola Ovalle ([phone]) and she indicated that she and her son (resident's brother Adi Will- [phone]) would be the responsible parties for the resident. Mrs Ovalle was able to respond to questions pertaining to biopsychosocial assessment. She stated she will be here to sign admission paperwork later on today. She noted that she would like for the resident to be DNR code status with supportive measures (Blood transfusions and dialysis NOT to be used and antibiotics, IV fluids, hydration and nutrition tube, transfer to acute hospital, oxygen, ventilator ALL to be used. Informed charge nurse.
--- NOTE | 2017-10-19 12:27 | NUR ---
Resident's mother Avis Ovalle ([phone]) and brother Adi Will ([phone]) signed off on admission ppwk ( patient rights acknowledgement, documentation of preferred intensity of care, conditions of admission, [place] Standard Admission Agreement, and voluntary prior express consent form).
--- NOTE | 2017-10-19 14:00 | NUR ---
JAMIL SAUCEDA did rounds today, made aware patient taking epogen shama read, pharmacy asking HGB results, today HGB - 8.2 Okay to give epogen today. She ordered to do H and H WEEKLY q thursday while on epogen 3x/week. Noted and carried out.
[2017-10-19 14:14] LABS: HEMOGLOBIN 8.2 g/dL (13.5-17.5)
[2017-10-19] MEDS: EPOETIN ALFA (4000 UNIT) 4,000 UNIT/ML VIAL SQ SCH (17:32)
[2017-10-19] MEDS: DOXYCYCLINE HYCLATE (100 MG) 100 MG TABLET PO SCH (20:16)
[2017-10-19 20:22] VITALS: BP 114/72
[2017-10-20] MEDS: IPRATROPIUM NEB FS 0.5 MG/2.5 ML AMPUL.NEB NEB SCH ×4 (02:04→19:27)
[2017-10-20] MEDS: ALBUTEROL FS 2.5 MG/3 ML VIAL.NEB NEB SCH ×4 (02:04→19:27)
[2017-10-20 06:58] LABS: CALCIUM, SERUM 10.4 mg/dL (8.5-10.1); CREATININE 0.2 mg/dL (0.6-1.3); POTASSIUM 4.2 mmol/L (3.5-5.1)
[2017-10-20 07:45] VITALS: BP 106/70
[2017-10-20] MEDS: DAKINS HALF STRENGTH (0.25%) 480 ML BOTTLE TOP SCH ×2 (09:00→21:03)
[2017-10-20] MEDS: HYDROCODONE/APAP 5/325MG 1 EACH TABLET GT SCH ×2 (09:00→20:21)
[2017-10-20] MEDS: FERROUS SULFATE - FOR SA ONLY 330 MG/7.5 ML UDC GT SCH ×3 (09:17→17:07)
[2017-10-20] MEDS: DOCUSATE SODIUM LIQ 100 MG/10 ML UDC GT SCH (09:17)
[2017-10-20] MEDS: ASCORBIC ACID 100 MG GT SCH (09:18)
[2017-10-20] MEDS: CRANBERRY GT SCH (09:18)
[2017-10-20] MEDS: BACLOFEN (10 MG) 10 MG TABLET GT SCH ×2 (09:19→17:10)
[2017-10-20] MEDS: FAMOTIDINE (20 MG) 20 MG TABLET GT SCH (09:20)
[2017-10-20] MEDS: METOPROLOL TARTRATE 25 MG TABLET GT SCH ×2 (09:20→20:20)
[2017-10-20] MEDS: MIDODRINE HCL (5MG) 5 MG TABLET GT SCH ×3 (09:21→17:11)
[2017-10-20] MEDS: PROSOURCE / PROSTAT (PYXIS) 30 ML UDC GT SCH ×2 (09:21→17:07)
[2017-10-20] MEDS: ASCORBIC ACID 500 MG TABLET GT SCH (09:22)
[2017-10-20] MEDS: SORBITOL SOLUTION 30 ML GT SCH ×2 (09:22→20:21)
[2017-10-20] MEDS: MULTIVITAMINS,THERAGRAN 1 UDTAB TABLET GT SCH (09:22)
[2017-10-20] MEDS: SENNOSIDES 8.6 MG TABLET GT SCH ×2 (09:22→20:21)
[2017-10-20] MEDS: ZINC SULFATE 220 MG CAPSULE GT SCH (09:23)
[2017-10-20] MEDS: CLOPIDOGREL BISULFATE 75 MG TABLET PO SCH (09:23)
[2017-10-20] MEDS: DOXYCYCLINE HYCLATE (100 MG) 100 MG TABLET PO SCH ×2 (09:24→17:08)
[2017-10-20] MEDS: ENOXAPARIN SODIUM 40 MG/0.4 ML DISP.SYRIN SQ SCH (09:24)
[2017-10-20] MEDS: FLUOCINONIDE 0.05% CREAM 30 GM TUBE TP SCH ×2 (09:30→21:04)
[2017-10-20] MEDS: HYDROGEL DRESSING 90 GM TUBE TP SCH ×4 (09:30→21:03)
[2017-10-20] MEDS: ZINC OXIDE 30 GM TUBE TP SCH ×2 (09:30→21:04)
[2017-10-20] MEDS: VITAMINS A AND D 56.7 GM TUBE TP SCH ×4 (09:30→21:04)
[2017-10-20] MEDS: NEOMY SULF/BACITRAC ZN/POLY 15 GM TUBE TP SCH ×2 (09:30→21:04)
[2017-10-20] MEDS: Z GUARD REMEDY 4 OZ OINT TP SCH ×4 (09:30→21:04)
[2017-10-20 19:26] VITALS: BP 104/73
[2017-10-20] MEDS: FIBERSOURCE HN 1,000 ML BOTTLE GT PRN (21:05)
[2017-10-21] MEDS: IPRATROPIUM NEB FS 0.5 MG/2.5 ML AMPUL.NEB NEB SCH ×4 (01:19→20:09)
[2017-10-21] MEDS: ALBUTEROL FS 2.5 MG/3 ML VIAL.NEB NEB SCH ×5 (01:19→20:09)
[2017-10-21 07:53] VITALS: BP 114/77
[2017-10-21] MEDS: ZINC SULFATE 220 MG CAPSULE GT SCH (09:00)
[2017-10-21] MEDS: MULTIVITAMINS,THERAGRAN 1 UDTAB TABLET GT SCH (09:00)
[2017-10-21] MEDS: CRANBERRY GT SCH (09:00)
[2017-10-21] MEDS: SENNOSIDES 8.6 MG TABLET GT SCH ×2 (09:00→21:00)
[2017-10-21] MEDS: METOPROLOL TARTRATE 25 MG TABLET GT SCH ×2 (09:00→20:59)
[2017-10-21] MEDS: Z GUARD REMEDY 4 OZ OINT TP SCH ×4 (09:00→21:43)
[2017-10-21] MEDS: FLUOCINONIDE 0.05% CREAM 30 GM TUBE TP SCH ×2 (09:00→21:40)
[2017-10-21] MEDS: ENOXAPARIN SODIUM 40 MG/0.4 ML DISP.SYRIN SQ SCH (09:00)
[2017-10-21] MEDS: FAMOTIDINE (20 MG) 20 MG TABLET GT SCH (09:00)
[2017-10-21] MEDS: ZINC OXIDE 30 GM TUBE TP SCH (09:00)
[2017-10-21] MEDS: VITAMINS A AND D 56.7 GM TUBE TP SCH ×4 (09:00→21:43)
[2017-10-21] MEDS: MIDODRINE HCL (5MG) 5 MG TABLET GT SCH ×3 (09:00→16:13)
[2017-10-21] MEDS: DAKINS HALF STRENGTH (0.25%) 480 ML BOTTLE TOP SCH ×2 (09:00→21:39)
[2017-10-21] MEDS: NEOMY SULF/BACITRAC ZN/POLY 15 GM TUBE TP SCH ×2 (09:00→21:43)
[2017-10-21] MEDS: ASCORBIC ACID 100 MG GT SCH (09:00)
[2017-10-21] MEDS: EPOETIN ALFA (4000 UNIT) 4,000 UNIT/ML VIAL SQ SCH (09:00)
[2017-10-21] MEDS: ASCORBIC ACID 500 MG TABLET GT SCH (09:00)
[2017-10-21] MEDS ORDERED: ACETAMINOPHEN ES 500 MG TABLET GT PRN (09:00)
[2017-10-21] MEDS: HYDROCODONE/APAP 5/325MG 1 EACH TABLET GT SCH ×2 (09:00→21:00)
[2017-10-21] MEDS: BACLOFEN (10 MG) 10 MG TABLET GT SCH ×2 (09:00→16:13)
[2017-10-21] MEDS: DOXYCYCLINE HYCLATE (100 MG) 100 MG TABLET PO SCH ×2 (09:00→16:17)
[2017-10-21] MEDS: PROSOURCE / PROSTAT (PYXIS) 30 ML UDC GT SCH ×2 (09:00→16:15)
[2017-10-21] MEDS: FERROUS SULFATE - FOR SA ONLY 330 MG/7.5 ML UDC GT SCH ×3 (09:00→16:13)
[2017-10-21] MEDS: DOCUSATE SODIUM LIQ 100 MG/10 ML UDC GT SCH (09:00)
[2017-10-21] MEDS: SORBITOL SOLUTION 30 ML GT SCH ×2 (09:00→21:00)
[2017-10-21] MEDS: HYDROGEL DRESSING 90 GM TUBE TP SCH ×2 (09:00)
[2017-10-21] MEDS ORDERED: HYDROGEN PEROXIDE 480 ML BOTTLE TP PRN (09:30)
[2017-10-21] MEDS ORDERED: TUBERCULIN,PURIF.PROT.DERIV. 5 TU/0.1 ML VIAL ID SCH (10:00)
--- NOTE | 2017-10-21 13:00 | NUR ---
Seen by Mariam Moscoso NP for Dr. Jose Wilson with order to obtain consent for serial wound debridement and clarified some of the existing treatment orders.
--- NOTE | 2017-10-21 17:00 | NUR ---
Seen by Megan NEGRON she stated she will review culture results and make adjustment in ATB if necessary.
--- NOTE | 2017-10-21 20:37 | NUR ---
RECEIVED TRACH PT ON VENT. TRACH WELL SECURED. WIPING RAG WASHER DONE. VENT PLUGGED INTO RED OUTLET. ALARMS TESTED AND WELL FUNCTIONING WITH AMBU BAG PLACED AT BEDSIDE. PT TOLERATED Q6 BREATHING TX REQUESTED BY . SX THICK YELLOW SECRETIONS. NO ADVERSE REACTION NOTED. WILL CONT TO MONITOR PT.
[2017-10-21] MEDS: FIBERSOURCE HN 1,000 ML BOTTLE GT PRN (21:03)
[2017-10-21] MEDS: HYDROGEN PEROXIDE 480 ML BOTTLE TP SCH (21:40)
[2017-10-21] MEDS: Z GUARD REMEDY 2 OZ OINT TP SCH (21:43)
[2017-10-22] MEDS: IPRATROPIUM NEB FS 0.5 MG/2.5 ML AMPUL.NEB NEB SCH ×4 (00:58→20:13)
[2017-10-22] MEDS: ALBUTEROL FS 2.5 MG/3 ML VIAL.NEB NEB SCH ×4 (00:58→19:30)
[2017-10-22 07:36] VITALS: BP 104/74
[2017-10-22] MEDS: DOXYCYCLINE HYCLATE (100 MG) 100 MG TABLET PO SCH ×2 (09:00→17:00)
[2017-10-22] MEDS: ZINC SULFATE 220 MG CAPSULE GT SCH (09:00)
[2017-10-22] MEDS: SENNOSIDES 8.6 MG TABLET GT SCH ×2 (09:00→21:00)
[2017-10-22] MEDS: SORBITOL SOLUTION 30 ML GT SCH ×2 (09:00→21:00)
[2017-10-22] MEDS: PROSOURCE / PROSTAT (PYXIS) 30 ML UDC GT SCH ×2 (09:00→17:00)
[2017-10-22] MEDS: MULTIVITAMINS,THERAGRAN 1 UDTAB TABLET GT SCH (09:00)
[2017-10-22] MEDS: ASCORBIC ACID 500 MG TABLET GT SCH (09:00)
[2017-10-22] MEDS: ENOXAPARIN SODIUM 40 MG/0.4 ML DISP.SYRIN SQ SCH (09:00)
[2017-10-22] MEDS ORDERED: CLOPIDOGREL BISULFATE 75 MG TABLET GT SCH (09:00)
[2017-10-22] MEDS: FAMOTIDINE (20 MG) 20 MG TABLET GT SCH (09:57)
[2017-10-22] MEDS: CRANBERRY GT SCH (09:57)
[2017-10-22] MEDS: FERROUS SULFATE - FOR SA ONLY 330 MG/7.5 ML UDC GT SCH ×3 (09:57→17:00)
[2017-10-22] MEDS: ASCORBIC ACID 100 MG GT SCH (09:57)
[2017-10-22] MEDS: BACLOFEN (10 MG) 10 MG TABLET GT SCH ×2 (09:57→17:00)
[2017-10-22] MEDS: DOCUSATE SODIUM LIQ 100 MG/10 ML UDC GT SCH (09:57)
[2017-10-22] MEDS: MIDODRINE HCL (5MG) 5 MG TABLET GT SCH ×3 (09:58→17:00)
[2017-10-22] MEDS: HYDROCODONE/APAP 5/325MG 1 EACH TABLET GT SCH ×2 (09:59→21:00)
[2017-10-22] MEDS: METOPROLOL TARTRATE 25 MG TABLET GT SCH ×2 (09:59→21:51)
--- NOTE | 2017-10-22 10:11 | NUR ---
KAVITA received a call from Isela from [facility] regarding resident. She stated that medical case worker Malinda Acuña is faxing to the wrong number. Sent Malinda an email with correct information. She noted that there is no authorization for subacute yet. Informed Kris and subacute subcontract manager Nessa.
[2017-10-22] MEDS: BACI/NEOM/POLY B OINT PKT 1 UDPKT PACKET TP SCH ×4 (11:00→21:00)
[2017-10-22] MEDS: VITAMINS A AND D 56.7 GM TUBE TP SCH ×4 (11:00→21:00)
[2017-10-22] MEDS: NEOMY SULF/BACITRAC ZN/POLY 15 GM TUBE TP SCH ×2 (11:00→21:00)
[2017-10-22] MEDS: HYDROGEN PEROXIDE 480 ML BOTTLE TP SCH ×2 (11:00→21:00)
[2017-10-22] MEDS: FLUOCINONIDE 0.05% CREAM 30 GM TUBE TP SCH ×2 (11:00→21:00)
[2017-10-22] MEDS: Z GUARD REMEDY 4 OZ OINT TP SCH ×4 (11:00→21:00)
[2017-10-22] MEDS: Z GUARD REMEDY 2 OZ OINT TP SCH ×2 (11:00→21:00)
[2017-10-22] MEDS: DAKINS HALF STRENGTH (0.25%) 480 ML BOTTLE TOP SCH ×2 (11:00→21:00)
--- NOTE | 2017-10-22 11:00 | NUR ---
Sacral wound debridement done by Dr. Jose Drummond.
--- NOTE | 2017-10-22 16:00 | NUR ---
Pt bit his tongue and bleeding a lot. Notified Dr. Crystal and received order to transfer pt to ER for evaluation. Notified pt's brother.
--- NOTE | 2017-10-22 16:50 | NUR ---
Pt was transferred to ER, accompanied by SHE Gaines, RT Ardon, and ALFREDO Jones. BP 131/83 HR 120 R 20 T 98.6 F O2 sat 95%. Pt awake during transfer.
--- NOTE | 2017-10-22 19:00 | NUR ---
Readmitted pt back from ER. Dr. Crystal said he saw the pt there and there is nothing else that can be done for the pt right now. He said to use a mouthguard so that the pt will not be able to clench his teeth and bite his tongue. He also ordered to hold Lovenox and Plavix.
[2017-10-22] MEDS: FIBERSOURCE HN 1,000 ML BOTTLE GT PRN (19:47)
[2017-10-22 20:00] VITALS: BP 110/70
--- NOTE | 2017-10-22 20:00 | NUR ---
Patient awake,still with mouth bleeding noted moderate amount,suctioned orally and via tracheostomy to prevent aspiration.HOB elevated.Family at bedside.Mother mentioned to day shift nurse that she want to change intensity of care and want blood transfusion if needed.Will notify SW in the morning.Will continue to monitor.
--- NOTE | 2017-10-22 20:14 | NUR ---
RCVD PT ON VENT WITH NOTED SETTINGS. BREATHING TX GIVEN, NO ADVERSE REACTION NOTED. SUCTIONED LARGE AMOUNT OF BLOODY THICK SECRETIONS . VENT PLUGGED INTO RED OUTLET, VENT ALARM WORKING AND AUDIBLE. AMBU BAG AT BEDSIDE. WILL CONTINUE TO MONITOR THE PT.
[2017-10-22] MEDS: HYDROCODONE/APAP 5/325MG 1 EACH TABLET GT PRN (20:36)
[2017-10-23] MEDS: ALBUTEROL FS 2.5 MG/3 ML VIAL.NEB NEB SCH ×4 (01:53→19:39)
[2017-10-23] MEDS: IPRATROPIUM NEB FS 0.5 MG/2.5 ML AMPUL.NEB NEB SCH ×4 (01:53→19:39)
--- NOTE | 2017-10-23 06:58 | NUR ---
Patient remains stable during the night,still with on and off bleeding coming out from the mouth when suctioned.HOB elevated to prevent aspiration.
[2017-10-23 08:01] VITALS: BP 121/70
[2017-10-23 08:04] VITALS: BP 102/67
[2017-10-23] MEDS: FAMOTIDINE (20 MG) 20 MG TABLET GT SCH (09:00)
[2017-10-23] MEDS: SENNOSIDES 8.6 MG TABLET GT SCH ×2 (09:00→20:20)
[2017-10-23] MEDS: ZINC SULFATE 220 MG CAPSULE GT SCH (09:00)
[2017-10-23] MEDS: METOPROLOL TARTRATE 25 MG TABLET GT SCH ×2 (09:00→20:19)
[2017-10-23] MEDS: MIDODRINE HCL (5MG) 5 MG TABLET GT SCH ×3 (09:00→17:18)
[2017-10-23] MEDS: ASCORBIC ACID 500 MG TABLET GT SCH (09:00)
[2017-10-23] MEDS: DOXYCYCLINE HYCLATE (100 MG) 100 MG TABLET PO SCH ×2 (09:00→17:18)
[2017-10-23] MEDS: HYDROCODONE/APAP 5/325MG 1 EACH TABLET GT SCH ×2 (09:00→20:20)
[2017-10-23] MEDS: PROSOURCE / PROSTAT (PYXIS) 30 ML UDC GT SCH ×2 (09:00→17:18)
[2017-10-23] MEDS: MULTIVITAMINS,THERAGRAN 1 UDTAB TABLET GT SCH (09:00)
[2017-10-23] MEDS: SORBITOL SOLUTION 30 ML GT SCH ×2 (09:00→20:21)
--- NOTE | 2017-10-23 09:10 | NUR ---
Received a call from resident's mother Christy stating that she wants to change PIC to include blood transfusion as part of the supportive care. Inform mother she can sign an updated PIC when she visits.
[2017-10-23] MEDS: ASCORBIC ACID 100 MG GT SCH (09:58)
[2017-10-23] MEDS: CRANBERRY GT SCH (09:58)
[2017-10-23] MEDS: FERROUS SULFATE - FOR SA ONLY 330 MG/7.5 ML UDC GT SCH ×3 (09:58→17:18)
[2017-10-23] MEDS: BACLOFEN (10 MG) 10 MG TABLET GT SCH ×2 (09:58→17:18)
[2017-10-23] MEDS: DOCUSATE SODIUM LIQ 100 MG/10 ML UDC GT SCH (09:58)
[2017-10-23] MEDS: Z GUARD REMEDY 2 OZ OINT TP SCH ×2 (11:00→20:24)
[2017-10-23] MEDS: DAKINS HALF STRENGTH (0.25%) 480 ML BOTTLE TOP SCH ×2 (11:00→20:23)
[2017-10-23] MEDS: FLUOCINONIDE 0.05% CREAM 30 GM TUBE TP SCH ×2 (11:00→20:24)
[2017-10-23] MEDS: HYDROGEN PEROXIDE 480 ML BOTTLE TP SCH ×2 (11:00→20:23)
[2017-10-23] MEDS: VITAMINS A AND D 56.7 GM TUBE TP SCH ×4 (11:00→20:24)
[2017-10-23] MEDS: Z GUARD REMEDY 4 OZ OINT TP SCH ×4 (11:00→20:24)
[2017-10-23] MEDS: BACI/NEOM/POLY B OINT PKT 1 UDPKT PACKET TP SCH ×4 (11:00→20:24)
[2017-10-23] MEDS: NEOMY SULF/BACITRAC ZN/POLY 15 GM TUBE TP SCH ×2 (11:00→20:24)
[2017-10-23] MEDS: EPOETIN ALFA (4000 UNIT) 4,000 UNIT/ML VIAL SQ SCH (16:00)
--- NOTE | 2017-10-23 16:00 | NUR ---
Resident's mother signed an updated PIC to include blood transfusion from the list of supportive care but still no dialysis. She indicated not to use blood transfusion and dialysis from previous PIC. Resident remain DNR. Patient still with some bleeding coming from his mouth, frequent oral suctioning done.
--- NOTE | 2017-10-23 17:50 | NUR ---
RT NOTE PLACED BITE BLOCK ON PATIENT AT THIS TIME TO PREVENTING BITING OF TONGUE/GUMS. BLEEDING NOTED BEFORE BEING PLACED. COLD SALINE @ BEDSIDE. SUCTION DONE, TRACH SECURED AND PATENT. ORAL CARE DONE.
--- NOTE | 2017-10-23 18:02 | NUR ---
PATIENT RECEIVED ON MECHANICAL VENTILATION. SP02 > 92%, TRACH SECURED AND PATENT. ALARMS ON AND AUDIBLE. AMBU BAG/ BACK UP TRACH @ BEDSIDE. BLEEDING NOTED FROM MOUTH DUE TO BITING DOWN. MONITORED CLOSELY. Addendum: 10/23/17 at 1804 by JACINDA CANDELARIA RT Amended: Links added.
[2017-10-23 20:30] VITALS: BP 120/81
[2017-10-24] MEDS: ALBUTEROL FS 2.5 MG/3 ML VIAL.NEB NEB SCH ×3 (01:11→13:43)
[2017-10-24] MEDS: IPRATROPIUM NEB FS 0.5 MG/2.5 ML AMPUL.NEB NEB SCH ×3 (01:11→13:43)
--- NOTE | 2017-10-24 08:12 | NUR ---
RT NOTE: LATE ENTRY-PATIENT RECEIVED WITH #7 PORTEX ON HT 70 VENT. WHEN I WALKED INTO PATIENT'S ROOM SP02=85% ON 35% FI02. PATIENT SUCTIONED AND LAVAGED TO OBTAIN COPIOUS AMOUNT OF THIN CREAMY ALFRED SECRETIONS. FI02 INCREASED TO 45% WITH SP02=95%. NURSE(ZULY) AND CHARGE NURSE(RICARDO) NOTIFIED. AMBU BAG AND TRACH AT [facility].
[2017-10-24] MEDS: CRANBERRY GT SCH (08:32)
[2017-10-24] MEDS: DOCUSATE SODIUM LIQ 100 MG/10 ML UDC GT SCH (08:32)
[2017-10-24] MEDS: BACLOFEN (10 MG) 10 MG TABLET GT SCH (08:32)
[2017-10-24] MEDS: SORBITOL SOLUTION 30 ML GT SCH (08:32)
[2017-10-24] MEDS: FERROUS SULFATE - FOR SA ONLY 330 MG/7.5 ML UDC GT SCH ×2 (08:32→13:00)
[2017-10-24] MEDS: ASCORBIC ACID 100 MG GT SCH (08:32)
[2017-10-24] MEDS: FAMOTIDINE (20 MG) 20 MG TABLET GT SCH (08:33)
[2017-10-24] MEDS: HYDROCODONE/APAP 5/325MG 1 EACH TABLET GT SCH (08:33)
[2017-10-24] MEDS: METOPROLOL TARTRATE 25 MG TABLET GT SCH (08:33)
[2017-10-24] MEDS: PROSOURCE / PROSTAT (PYXIS) 30 ML UDC GT SCH (08:34)
[2017-10-24] MEDS: SENNOSIDES 8.6 MG TABLET GT SCH (08:34)
[2017-10-24] MEDS: MIDODRINE HCL (5MG) 5 MG TABLET GT SCH ×2 (08:34→13:00)
[2017-10-24] MEDS: ASCORBIC ACID 500 MG TABLET GT SCH (08:35)
[2017-10-24] MEDS: MULTIVITAMINS,THERAGRAN 1 UDTAB TABLET GT SCH (08:35)
[2017-10-24] MEDS: ZINC SULFATE 220 MG CAPSULE GT SCH (08:35)
[2017-10-24] MEDS: DOXYCYCLINE HYCLATE (100 MG) 100 MG TABLET PO SCH (09:00)
[2017-10-24] MEDS: DAKINS HALF STRENGTH (0.25%) 480 ML BOTTLE TOP SCH (09:33)
[2017-10-24] MEDS: NEOMY SULF/BACITRAC ZN/POLY 15 GM TUBE TP SCH (09:33)
[2017-10-24] MEDS: VITAMINS A AND D 56.7 GM TUBE TP SCH ×2 (09:33)
[2017-10-24] MEDS: FLUOCINONIDE 0.05% CREAM 30 GM TUBE TP SCH (09:33)
[2017-10-24] MEDS: Z GUARD REMEDY 2 OZ OINT TP SCH (09:33)
[2017-10-24] MEDS: HYDROGEN PEROXIDE 480 ML BOTTLE TP SCH (09:33)
[2017-10-24] MEDS: BACI/NEOM/POLY B OINT PKT 1 UDPKT PACKET TP SCH ×2 (09:33)
[2017-10-24] MEDS: Z GUARD REMEDY 4 OZ OINT TP SCH ×2 (09:33)
--- NOTE | 2017-10-24 10:31 | NUR ---
Notified Dr. Crystal of the following: when to resume Plavix and Lovenox, resident is no longer bleeding but only small amount of tinged of blood this shift. MD made aware patient has lots of abdominal gas, and his O2 saturation only 94% on Fio2 of 45%, Vent setting AC 14, TV 550, Peep5. Awaiting for orders.
--- NOTE | 2017-10-24 11:30 | NUR ---
RT NOTE: RT CALLED AFTER PATIENT WAS CHANGED. WHEN I WALKED IN THE ROOM PATIENT SPO2=89%. SUCTIONED COPIOUS AMOUNT OF SECRETION. FI02 INCREASED TO 60% WITH SP02=96%. CHARGE NURSE AND NURSE NOTIFIED.
--- NOTE | 2017-10-24 11:35 | NUR ---
Notified Dr. Rodolfo Goodson regarding patient's condition and concerns. Order was given to resume Lovenox and Plavix, gave an order for Simethicone for abdominal bloating and stat ABG and stat chest xray. Dr. Goodson made aware of patient's O2 sat reaching up to only 89-90% despite Fi02 of 60%. He said he will take a look at the patient.
[2017-10-24 12:01] LABS: ABG BASE EXCESS 9.7 mmol/L; ABG OXYGEN SATURATION 98.4 % (92.0-98.5); ABG PCO2 97.1 mmHg (35.0-45.0); ABG PH 7.229 (7.350-7.450); ABG PO2 146.7 mmHg (75.0-100.0); AaDO2 469.2 mmHg; COHb 0.6 % (0.5-1.5); MetHb 0.3 % (0.0-1.5); O2Hb 97.5 % (94.0-97.0); PEEP,BG 5 cm H2O; SITE, ABG Right Radial; VT, ABG 550 mL
[2017-10-24] MEDS ORDERED: CLOPIDOGREL BISULFATE 75 MG TABLET GT SCH (12:04)
--- NOTE | 2017-10-24 12:10 | NUR ---
Dr. Miller said OK to resume Plavix but not Lovenox, and may give Simethecone for gas, and ordered ABG and chest Xray just as previously ordered by Dr. Rodolfo Goodson. COMPUTER FORENSICS INVESTIGATOR notified not to give Lovenox. Resident with thick yellow and very productive secretions, frequent oral and tracheal suctioning done by RN, RT and COMPUTER FORENSICS INVESTIGATOR. Resident with mouth guard to prevent biting lips and tongue.
--- NOTE | 2017-10-24 12:17 | NUR ---
RT NOTE: PER DR.TIM PRADO VENT CHANGES MADE PER ORDER. AC 28, 600,FI02=60%,PEEP=5.
--- NOTE | 2017-10-24 12:25 | NUR ---
Dr. Rodolfo Goodson came at 1135, assessed patient, suctioned trach obtained moderate amount of thick yellow secretions. O2 sat. remain at 89-91% at 60% Fi02. ABG done and result seen by Dr. Goodson. He changed vent setting to AC 28, TV 600, Fi02 60%, with order to repeat ABG after 15 min. and start IV Merrem, Vanco and send sputum culture. Orders carried out.
[2017-10-24 12:50] LABS: ABG BASE EXCESS 10.4 mmol/L; ABG PH 7.411 (7.350-7.450); ABG PO2 99.1 mmHg (75.0-100.0); AaDO2 263.8 mmHg; COHb 0.3 % (0.5-1.5); MetHb 0.6 % (0.0-1.5); O2Hb 96.1 % (94.0-97.0); SITE, ABG Right Radial; VENT MODE, BG ac 28 600 60% +5
[2017-10-24 13:00] VITALS: BP 137/89
[2017-10-24] MEDS ORDERED: VANCOMYCIN 1 GM in IV D5W 250 ML IV ONE (13:00)
[2017-10-24] MEDS ORDERED: MEROPENEM 1 G in IV NS 0.9% 100 ML IV ONE (13:00)
--- NOTE | 2017-10-24 13:15 | NUR ---
Notified Dr. Rodolfo Goodson of the repeat ABG with new vent setting, Cxray pending, however O2 sat reading remain 89-90% at fi02 60%. No new order given at this time but to continue to monitor and suction PRN.
[2017-10-24 13:32] LABS: CALCIUM, SERUM 11.1 mg/dL (8.5-10.1); CREATININE 0.4 mg/dL (0.6-1.3); POTASSIUM 4.5 mmol/L (3.5-5.1)
--- NOTE | 2017-10-24 14:30 | NUR ---
Update Dr. Goodson of patient's condition O2 sat 96-98% fi02 remain at 60% but HR 146-150, and B/P 137/89, asked if he wants to hold Midodrine, stated to hold Midodrine. Chest X ray result reported to Dr. Goodson. No new order stated his HR will eventually come down. Resident remain awake, alert and make facial grimaces when he is uncomfortable. Denies discomfort. IV Vancomycin and Merrem given, no adverse reaction. Midline in the R upper arm patent and intact.
--- NOTE | 2017-10-24 15:35 | NUR ---
Notified Dr. Rodolfo Goodson that LAPIDARY APPRENTICE reported that she has been venting GT and constant air is coming out from his GT for about 30 min. non stop, still on going. Stat KUB and ChestXray was ordered with instructions to call him when serology technician at bedside. Order carried out. Radiology department notified of stat order.
--- NOTE | 2017-10-24 16:15 | NUR ---
Dr. Goodson assessed the patient, he is at bedside for stat chest xray and KUB. 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 Nursing circuit breaker supervisor notified, and ICU CN notified of the transfer.
--- NOTE | 2017-10-24 16:25 | NUR ---
Resident transferred directly to ICU via bed accompanied by this nurse, HEALTH CARE ATTORNEY, JIGMAKER and RT. V/S, 135/80, HR153, T98.5, RR24, 02 sat 98% with vent setting AC 28, TV 600, Fi02 60%. Report given to ICU Charge nurse Umu and receiving RN Michelle. Resident in no acute distress, remain awake and acknowledges he is OK through eye movement and facial expression. Copy of recent labs, H&P, physician orders, preferred intensity of care and copy of the latest sacral wound photo given to receiving RN. Resident's mother notified of transfer.
[2017-10-24] MEDS ORDERED: NEOM1OIN6 TP (18:01)
[2017-10-24] MEDS ORDERED: DOXY100C GT (18:01)
[2017-10-24] MEDS ORDERED: VITA56.7 TP (18:01)
[2017-10-24] MEDS ORDERED: HYDR1SOL TP (18:01)
[2017-10-24] MEDS ORDERED: MERO1VIA IV (18:01)
[2017-10-24] MEDS ORDERED: VANC1VIA2 IV (18:01)
[2017-10-24] MEDS ORDERED: FLUO15CR12 TP (18:01)
[2017-10-24] MEDS ORDERED: NUTR150016 GT (18:01)
[2017-10-24] MEDS ORDERED: SODI480S2 TOP (18:01)
[2017-10-24] MEDS ORDERED: ALLA266C2 TP (18:01)
[2017-10-24] MEDS ORDERED: MEROPENEM 500 MG in IV NS 0.9% 50 ML IV SCH (21:00)
[2017-10-24] MEDS ORDERED: VANCOMYCIN 1 GM in IV D5W 250 ML IV SCH (21:00)
[2017-10-24] MEDS ORDERED: MEROPENEM 1 G in IV NS 0.9% 100 ML IV SCH (21:00)
[2017-10-25] MEDS ORDERED: ENOXAPARIN SODIUM 40 MG/0.4 ML DISP.SYRIN SQ SCH (09:00)
--- NOTE | 2017-10-26 08:13 | NUR ---
Daja was informed that the resident was transferred to [facility] ICU Thursday10/24/2017. The resident has been placed on a bedhold x7 days as of 10/24/2017. DAJA faxed the "Resident Transfer or Discharge Form" to leslie [facility] fax: [phone] tel: [phone]. Received fax confirmation that it was sent. Resident Transfer or Discharge Form and Bed Hold Notification form was placed into the resident's chart.
== END 2017-10-24 19:01 | disposition short-term general hospital (02) | DRG 951 ==
LOC: SA 20:11 → UNDOLOA 10-26 13:59
PROVIDERS: ADMIT Internal Medicine; ATTEND Internal Medicine
DX: J96.21 Acute and chronic respiratory failure with hypoxia (principal); J86.0 Pyothorax with fistula; G12.21 Amyotrophic lateral sclerosis; J69.0 Pneumonitis due to inhalation of food and vomit; A41.9 Sepsis, unspecified organism; G93.41 Metabolic encephalopathy; E43 Unspecified severe protein-calorie malnutrition; L89.154 Pressure ulcer of sacral region, stage 4; Z99.11 Dependence on respirator [ventilator] status; Z93.0 Tracheostomy status; D64.9 Anemia, unspecified; I10 Essential (primary) hypertension; K21.9 Gastro-esophageal reflux disease without esophagitis; R13.10 Dysphagia, unspecified; Z86.73 Personal history of transient ischemic attack (TIA), and cerebral infarction without residual deficits; Z87.01 Personal history of pneumonia (recurrent); Z93.1 Gastrostomy status; Z74.01 Bed confinement status; R53.2 Functional quadriplegia; N39.0 Urinary tract infection, site not specified; L89.890 Pressure ulcer of other site, unstageable; Z68.1 Body mass index [BMI] 19.9 or less, adult; J95.851 Ventilator associated pneumonia; Y84.9 Medical procedure, unspecified as the cause of abnormal reaction of the patient, or of later complication, without mention of misadventure at the time of the procedure; Y82.8 Other medical devices associated with adverse incidents; Y92.129 Unspecified place in nursing home as the place of occurrence of the external cause
CPT/HCPCS: 31720; 36415; 36600; 71045-TC; 74018; 80048-TC; 80202-TC; 82803-TC; 85027-TC; 86580-TC; 87081-TC; 94002-TC; 94003-TC; 94760-TC; 94762-TC; 99082-TC; A4216; A4606; A4623; A6248; A6253; A6402; A7526; J0885; J1650; J2185; J3370; J7030; J7050; J7060; Z7610

== ENCOUNTER 2017-10-22 17:05 | Emergency (ER) | payer OTHER ==
[~2017-10-22] VITALS: Ht 180.3 cm; Wt 54.4 kg
--- NOTE | 2017-10-22 17:05 | NUR ---
BIB SUBACUTE STAFF, TONGUE LACERATION NOTED SINCE 1100. NAD NOTED. PT ON VENT, VSS BREATHING UNLABOERD. PT PLACED ON MONITOR. MD AT BEDSIDE FOR EVAL.
[2017-10-22 18:14] LABS: BASOPHILS # (AUTO) 0.1 /CMM (0.0-0.2); BASOPHILS % (AUTO) 0.7 % (0.0-2.0); EOSINOPHILS # (AUTO) 0.3 /CMM (0.0-0.7); EOSINOPHILS % (AUTO) 2.5 % (0.0-6.0); HEMATOCRIT 26 % (39-51); HEMOGLOBIN 8.2 g/dL (13.5-17.5); LYMPHOCYTES # (AUTO) 1.6 /CMM (0.8-4.8); LYMPHOCYTES % (AUTO) 11.5 % (20.0-44.0); MEAN CORPUSCULAR HEMOGLOBIN 26 PG (26.0-33.0); MEAN CORPUSCULAR HGB CONC 32 g/dl (31.0-36.0); MEAN CORPUSCULAR VOLUME 82 fL (80-96); MONOCYTES # (AUTO) 0.5 /CMM (0.1-1.30); MONOCYTES % (AUTO) 3.8 % (2.0-12.0); NEUTROPHILS # (AUTO) 11.3 /CMM (1.8-8.9); NEUTROPHILS % (AUTO) 81.5 % (43.0-81.0); PLATELET COUNT (AUTO) 536 /CMM (150-450); RDW COEFFICIENT OF VARIATION 18.3 (11.5-15.0); RED BLOOD CELL COUNT(AUTO) 3.15 MIL/uL (4.5-6.0); WHITE BLOOD COUNT (AUTO) 13.8 K/uL (4.3-11.0)
[2017-10-22 18:17] LABS: CALCIUM, SERUM 10.3 mg/dL (8.5-10.1); CREATININE 0.2 mg/dL (0.6-1.3); POTASSIUM 4.2 mmol/L (3.5-5.1)
[2017-10-22 18:22] LABS: INR 1.05 (0.85-1.15)
--- NOTE | 2017-10-22 18:44 | NUR ---
PT CLEARED BY ELENA BOURGEOIS. PT GOING BACK TO SUBACUTE IN STABLE CONDITION
[2017-10-22 18:45] LABS: BAND % (MANUAL) 2 % (0.0-5.0); LYMPHOCYTES % (MANUAL) 16 % (16-48); NEUTROPHILS % (MANUAL) 82 (42-76)
[2017-10-22 18:55] VITALS: BP 118/75
== END 2017-10-22 18:57 | disposition home or self-care (01) ==
LOC: ER 17:09
DX: S01.512A Laceration without foreign body of oral cavity, initial encounter (principal); K21.9 Gastro-esophageal reflux disease without esophagitis; Y33.XXXA Other specified events, undetermined intent, initial encounter; Y92.89 Other specified places as the place of occurrence of the external cause; Y93.89 Activity, other specified; Y99.8 Other external cause status
CPT/HCPCS: 36415; 80048; 85025; 85730; 99284; A4606; Z7610

== ENCOUNTER 2017-10-24 16:43 | Inpatient (IN) | payer OTHER ==
[2017-10-24] VITALS (16 sets, daily range): BP systolic 72–130; BP diastolic 45–78
[~2017-10-24] VITALS: Ht 180.3 cm; Wt 64.9 kg
--- NOTE | 2017-10-24 17:00 | NUR ---
BILINGUAL PATIENT SUPPORT CASEWORKER RECEIVED PATIENT AWAKE, ALERT ORIENTED X 3 NODS WHEN ANSWERS QUESTIONS FEBRILE -103.1 COOLING MEASURES DONE, AWAITING ORDERS SEEN BY JOHAN KIRKPATRICK AND BEDSIDE PROCEDURE DONE MONITORED CLOSELY
--- NOTE | 2017-10-24 17:02 | NUR ---
RT NOTE: PATIENT ORALLY INTUBATED BY DR.TIM PRADO WITH 7.5 ETT SECURED AT 24 CM MID LIP LINE. POSITIVE COLOR CHANGE ON CAPNOMETER. BILATERAL B/S NOTED. PLACED BACK ON VENT PER MD ORDER. ALARMS SET AND AUDIBLE. SUCTIONED COPIOUS AMOUNT OF THICK ALFRED CREAMY SECRETIONS. AMBU BAG AT [facility].
[2017-10-24] MEDS ORDERED: VANC1VIA2 IV (18:01)
[2017-10-24] MEDS ORDERED: FLUO15CR12 TP (18:01)
[2017-10-24] MEDS ORDERED: NUTR150016 GT (18:01)
[2017-10-24] MEDS ORDERED: MERO1VIA IV (18:01)
[2017-10-24] MEDS ORDERED: SODI480S2 TOP (18:01)
[2017-10-24] MEDS ORDERED: HYDR1SOL TP (18:01)
[2017-10-24] MEDS ORDERED: ALLA266C2 TP (18:01)
[2017-10-24] MEDS ORDERED: NEOM1OIN6 TP (18:01)
[2017-10-24] MEDS ORDERED: DOXY100C GT (18:01)
[2017-10-24] MEDS ORDERED: VITA56.7 TP (18:01)
[2017-10-24] MEDS ORDERED: SUCCINYLCHOLINE CHLORIDE 20 MG/ML VIAL IV ONE (18:26)
[2017-10-24] MEDS ORDERED: ETOMIDATE 2 MG/ML VIAL IV ONE (18:26)
--- NOTE | 2017-10-24 18:45 | NUR ---
WAREHOUSE PERSON SEEN AND EXAMINED BY DR. JOE WITH NEW ORDERS MADE AND CARRIED OUT BOLUS 500 MOL GIVEN
--- NOTE | 2017-10-24 19:00 | NUR ---
PROVINCE ARCHIVIST NOTES 1899 Received patient orally intubated on the ventilator on AC mode,alert,opens eyes with eye contact but no expression.No movement on all extremities,flaccid,+ cough and gag.Old trache site covered with dressing noted slight amount of blood stain but no active bleed noted.Mid line PETER ,GT clamped,NPO for now.Still alert just started on Propofol drip.Comfort care done,needs attended. BP in the 80's NSS bolus infusing now. Levophed on standby if BP does not improve. 2049 Brought patient down to CT dept for stat CT chest . [address] dept. tolerated well.BP in the 90's ,will closely monitor. 0 BP stablein the 100's .All antibiotics started.
[2017-10-24] MEDS: PROPOFOL 100 ML IV PRN ×2 (19:03→20:49)
[2017-10-24] MEDS ORDERED: IV NS 0.9% 500 ML BAG IV ONE (19:30)
[2017-10-24] MEDS ORDERED: IV NS 0.9% 1,000 ML IV PRN ×2 (19:30→22:00)
[2017-10-24] MEDS ORDERED: NOREPINEPHRINE 8 MG in IV D5W 500 ML IV PRN (19:30)
[2017-10-24 19:46] LABS: ABG BASE EXCESS 13.4 mmol/L; ABG OXYGEN SATURATION 99.4 % (92.0-98.5); ABG PCO2 41.7 mmHg (35.0-45.0); ABG PH 7.563 (7.350-7.450); ABG PO2 444.3 mmHg (75.0-100.0); COHb 0.3 % (0.5-1.5); O2Hb 98.1 % (94.0-97.0); PEEP,BG 5 cm H2O; SITE, ABG Right Radial; VENT MODE, BG AC 28 600 400% +5; VT, ABG 600 mL
[2017-10-24 19:52] LABS: BASOPHILS % (AUTO) 0.3 % (0.0-2.0); EOSINOPHILS % (AUTO) 0.2 % (0.0-6.0); HEMATOCRIT 22 % (39-51); HEMOGLOBIN 7.3 g/dL (13.5-17.5); LYMPHOCYTES # (AUTO) 0.8 /CMM (0.8-4.8); LYMPHOCYTES % (AUTO) 6.1 % (20.0-44.0); MEAN CORPUSCULAR HEMOGLOBIN 27 PG (26.0-33.0); MEAN CORPUSCULAR HGB CONC 33 g/dl (31.0-36.0); MEAN CORPUSCULAR VOLUME 82 fL (80-96); MONOCYTES # (AUTO) 0.4 /CMM (0.1-1.30); NEUTROPHILS # (AUTO) 12.5 /CMM (1.8-8.9); NEUTROPHILS % (AUTO) 90.4 % (43.0-81.0); PLATELET COUNT (AUTO) 447 /CMM (150-450); RDW COEFFICIENT OF VARIATION 18.5 (11.5-15.0); RED BLOOD CELL COUNT(AUTO) 2.74 MIL/uL (4.5-6.0); WHITE BLOOD COUNT (AUTO) 13.7 K/uL (4.3-11.0)
[2017-10-24] MEDS ORDERED: ONDANSETRON HCL/PF 4 MG/2 ML VIAL IVP PRN (20:00)
[2017-10-24] MEDS ORDERED: Z GUARD REMEDY 2 OZ OINT TP PRN (20:00)
[2017-10-24 20:05] LABS: ALBUMIN 1.7 g/dL (3.4-5.0); BILIRUBIN,TOTAL 0.3 mg/dL (0.2-1.0); CREATININE 0.3 mg/dL (0.6-1.3); TOTAL PROTEIN, SERUM 6.8 g/dL (6.4-8.2)
--- NOTE | 2017-10-24 20:13 | NUR ---
PT RETURNED TO PREVIOUS SETTINGS PER MD VERBAL ORDER POST ABG RESULTS Addendum: 10/24/17 at 2013 by SUKHDEV HUYNH RT Amended: Links added.
--- NOTE | 2017-10-24 20:34 | NUR ---
PT NOT READY FOR CT SCAN, RN WILL CALL WHEN READY.
[2017-10-24] MEDS: MEROPENEM 1 G in IV NS 0.9% 100 ML IV SCH (20:41)
[2017-10-24] MEDS: VANCOMYCIN 1 GM in IV D5W 250 ML IV SCH (20:49)
[2017-10-24 20:55] LABS: BILIRUBIN,DIRECT 0.1 mg/dL (0.0-0.2)
--- NOTE | 2017-10-24 21:25 | NUR ---
pt received on vent via charted route and settings. ambu bag at bedside alarms set and audible. disconnect alarms checked. vent plugged into red outlet. pt has increased hr. will continue to monitor Addendum: 10/24/17 at 2128 by SUKHDEV HUYNH RT Amended: Links added.
[2017-10-24 22:02] LABS: BAND % (MANUAL) 15 % (0.0-5.0); LYMPHOCYTES % (MANUAL) 7 % (16-48); MONOCYTES % (MANUAL) 1 % (0-11.0); NEUTROPHILS % (MANUAL) 77 (42-76)
[2017-10-24] MEDS ORDERED: IPRATROPIUM NEB FS 0.5 MG/2.5 ML AMPUL.NEB IH PRN (23:30)
[2017-10-24] MEDS ORDERED: ALBUTEROL FS 2.5 MG/3 ML VIAL.NEB IH PRN (23:30)
[2017-10-24] MEDS ORDERED: BISACODYL SUPP (10 MG) 10 MG/SUPP.RECT SUPP.RECT RC PRN (23:30)
[2017-10-24] MEDS ORDERED: PIPERACILLIN /TAZOBACTAM 3.375 G VIAL IV ONE (23:33)
--- NOTE | 2017-10-24 23:35 | NUR ---
fio2 decreased to 60% due to increased spo2 Addendum: 10/24/17 at 2335 by SUKHDEV VILLARREAL Amended: Links added.
[2017-10-24] MEDS: PIPERACILLIN /TAZOBACTAM 3.375 G in IV D5W 50 ML IV SCH (23:46)
[2017-10-25] VITALS (26 sets, daily range): BP systolic 79–123; BP diastolic 45–77
--- NOTE | 2017-10-25 | NUR ---
SUPPLY TECH NOTES 12 am More sedated now but still easily arousable,but calm and quiet ,. 0100 BP down to the 80's .Levophed drip started,will titrate.
[2017-10-25] MEDS ORDERED: NOREPINEPHRINE 4 MG/4 ML AMPUL IV ONE (00:59)
--- NOTE | 2017-10-25 01:54 | NUR ---
fio2 decreased to 50% due to increased spo2 Addendum: 10/25/17 at 0154 by SUKHDEV VILLARREAL Amended: Links added.
[2017-10-25] MEDS: PROPOFOL 100 ML IV PRN (03:36)
--- NOTE | 2017-10-25 04:20 | NUR ---
AUDIO VISUAL COORDINATOR NOTES 0400 Am care done,BP remains stable.Sacral decub care done,phot taken.Left ear wouind /ulcer cleansed and covered with mepilex.
--- NOTE | 2017-10-25 05:00 | NUR ---
TRANSPORTATION ENGINEERING TECHNICIAN NOTES 0500 heard some gurgling sound iver the oral cavity on and off ,patient receiving his tidal volume,O2 sat 100% consistently. 0530 still hearing gurgling sound from the mouth ,then noted abdomen to be distended,tried to open G tube and heard some escaping air from the GT. Intermittently opens GT very briefly to release some air.
[2017-10-25 05:09] LABS: BASOPHILS % (AUTO) 0.2 % (0.0-2.0); EOSINOPHILS # (AUTO) 0.6 /CMM (0.0-0.7); EOSINOPHILS % (AUTO) 2.3 % (0.0-6.0); HEMATOCRIT 24 % (39-51); HEMOGLOBIN 7.5 g/dL (13.5-17.5); LYMPHOCYTES # (AUTO) 1.7 /CMM (0.8-4.8); LYMPHOCYTES % (AUTO) 6.8 % (20.0-44.0); MEAN CORPUSCULAR HEMOGLOBIN 26 PG (26.0-33.0); MEAN CORPUSCULAR HGB CONC 31 g/dl (31.0-36.0); MEAN CORPUSCULAR VOLUME 85 fL (80-96); MONOCYTES # (AUTO) 0.9 /CMM (0.1-1.30); MONOCYTES % (AUTO) 3.6 % (2.0-12.0); NEUTROPHILS # (AUTO) 21.6 /CMM (1.8-8.9); NEUTROPHILS % (AUTO) 87.1 % (43.0-81.0); PLATELET COUNT (AUTO) 505 /CMM (150-450); RDW COEFFICIENT OF VARIATION 19.5 (11.5-15.0); RED BLOOD CELL COUNT(AUTO) 2.85 MIL/uL (4.5-6.0); WHITE BLOOD COUNT (AUTO) 24.8 K/uL (4.3-11.0)
[2017-10-25] MEDS: VANCOMYCIN 1 GM in IV D5W 250 ML IV SCH (05:19)
[2017-10-25] MEDS: MEROPENEM 1 G in IV NS 0.9% 100 ML IV SCH (05:19)
[2017-10-25 05:27] LABS: ALBUMIN 1.8 g/dL (3.4-5.0); BILIRUBIN,TOTAL 0.3 mg/dL (0.2-1.0); CALCIUM, SERUM 10.3 mg/dL (8.5-10.1); CREATININE 0.3 mg/dL (0.6-1.3); PHOSPHORUS 3.2 mg/dL (2.5-4.9); POTASSIUM 3.5 mmol/L (3.5-5.1); TOTAL PROTEIN, SERUM 7.5 g/dL (6.4-8.2)
[2017-10-25 05:41] LABS: BAND % (MANUAL) 3 % (0.0-5.0); EOSINOPHILS % (MANUAL) 1 % (0-4); LYMPHOCYTES % (MANUAL) 6 % (16-48); MONOCYTES % (MANUAL) 3 % (0-11.0); NEUTROPHILS % (MANUAL) 87 (42-76)
[2017-10-25] MEDS ORDERED: PIPERACILLIN /TAZOBACTAM 3.375 G VIAL IV ONE (05:53)
[2017-10-25] MEDS: PIPERACILLIN /TAZOBACTAM 3.375 G in IV D5W 50 ML IV SCH (06:05)
--- NOTE | 2017-10-25 07:00 | NUR ---
SCIENCE CENTER DISPLAY BUILDER NOTES Report given to Libby GARCIA.
--- NOTE | 2017-10-25 07:30 | NUR ---
COOK HELPER RECEIVED PATIENT SEDATED ON 20 MCGS OF DIPRIVAN WITH ON GOING IVF NS AT 100 ML ON MECHANICAL VENTILATORY SUPPORT SATURATING 98% SUCTIONED SECRETION PRN LOW GRADE FEVER AT 99.2 TACHYCARDIA NOTED AT 115 BP PRESSURE WNL BUT ON LEVOPHED AT 5 MCG GURGLING SOUND HEARD ON PEG BUT NO BUBBLING SEEN AT THE PEG AREA WHEN PLACED WITH WATER HART CATHETER DRAINING TO YELLOWISH URINE ADEQUATE IN AMOUNT
--- NOTE | 2017-10-25 07:36 | NUR ---
TREATING ENGINEER HELPER STILL AWAITING VANCOMYCIN TROUGH TO BE ABLE TO GIVE VANCOMYCIN IV
[2017-10-25 08:01] LABS: ABG BASE EXCESS 12.8 mmol/L; ABG OXYGEN SATURATION 97.9 % (92.0-98.5); ABG PCO2 62.2 mmHg (35.0-45.0); ABG PH 7.415 (7.350-7.450); ABG PO2 116.1 mmHg (75.0-100.0); AaDO2 243.3 mmHg; COHb 0.3 % (0.5-1.5); MetHb 0.8 % (0.0-1.5); O2Hb 96.8 % (94.0-97.0); SITE, ABG Right Radial
[2017-10-25] MEDS ORDERED: ASCORBIC ACID 500 MG TABLET GT SCH (09:00)
[2017-10-25] MEDS ORDERED: BACLOFEN (10 MG) 10 MG TABLET GT SCH (09:00)
[2017-10-25] MEDS ORDERED: FLUOCINONIDE 0.05% CREAM 60 GM TUBE TP SCH (09:00)
[2017-10-25] MEDS ORDERED: SENNOSIDES 8.6 MG TABLET GT SCH (09:00)
[2017-10-25] MEDS ORDERED: DAKINS HALF STRENGTH (0.25%) 480 ML BOTTLE TOP SCH (09:00)
[2017-10-25] MEDS ORDERED: Z GUARD REMEDY 2 OZ OINT TP SCH (09:00)
[2017-10-25] MEDS ORDERED: PROSTAT (PYXIS) 30 ML UDC GT SCH (09:00)
[2017-10-25] MEDS ORDERED: SORBITOL SOLUTION 30 ML GT SCH (09:00)
[2017-10-25] MEDS ORDERED: METOPROLOL TARTRATE 25 MG TABLET GT SCH (09:00)
--- NOTE | 2017-10-25 09:30 | NUR ---
AIRPLANE DESIGNER SUCTIONED PATIENT THRU MOUTH DUE TO CONTINUOS FLUID LIKE COMING OUT OF HIS MOUTH MACHINE KEPT ON BEEPING , DESATURATION NOTED GRADUALLY PLACED ON OVERRIDE 100 % FIO2 CALLED UP RT FOR ASSISTANCE AMBUBBAGGING DONE BY RT HEART RATE DECREASED CONTINUOUSLY THEN WENT TO JUNCTIONAL SATURATION STILL DROPPING INFORMED CHARGE NURSE ABOUT PATIENT'S CONDITION MONITORED CLOSELY
--- NOTE | 2017-10-25 09:45 | NUR ---
DNR STATUS. SUDDEN CHANGE FROM NSR TO JUNCTIONAL RHYTHM AT 0940. PT IMMEDIATELY ATTENDED BY RNS AND RT. CYANOTIC. AMBU BAGGED AT 100% FIO2 VIA ETT WITHOUT DIFFICULTY. LEVOPHED UP TO 40 MCGMIN. BP NOT OBTAINABLE. RHYTHM DETERIORATED TO PEA WITHOUT DOPPLER PULSES. PUPILS FIXED AND DILATED. NO SPONTANEOUS RESPIR EFFORT. DNP JOHAN WHO WAS AT BEDSIDE EARLIER WAS CALLED AGAIN AND HAS NO FURTHER RECOMMENDATIONS. PT PRONOUNCED AT 0945. PT'S MOTHER AND BROTHER CALLED AND NOTIFIED AND WILL COME
--- NOTE | 2017-10-25 09:45 | NUR ---
RT RT WAS CALLED TO ROOM TO ASSESS PATIENT BECAUSE VENT ALARMS WERE ALARMING. PATIENT WAS DUSKY AND PULSELESS. PATIENT MANUALLY BAGGED WITH 100% O2 WITH PATENT AIRWAY. CHARGE NURSE ANN MARIE CALLED THE MD TO CALL PATIENT PASSING. PATIENT WAS A DNR CODE STATUS.
--- NOTE | 2017-10-25 10:35 | NUR ---
HOUSE WORKER GENERAL PRONOUNCED BY CHARGE NURSE ANN MARIE AT 0945 FAMILY IS CALLED BY CHARGED NURSE ONE [facility] IS CALLED BY CHARGE NURSE AND MARTY PRADO IS ALSO CALLED BY CHARGE NURSE POST MORTEM DONE
[2017-10-26] MEDS ORDERED: EPOETIN ALFA (4000 UNIT) 4,000 UNIT/ML VIAL SQ SCH (12:00)
== END 2017-10-25 09:45 | disposition expired | DRG 720 ==
LOC: ICU 16:43
PROVIDERS: ADMIT Nurse Practitioner Acute Care; ATTEND Nurse Practitioner Acute Care
PROC: 5A1935Z Respiratory Ventilation, Less than 24 Consecutive Hours (ICD-10-PCS; principal; 2017-10-24)
PROC: 0BH18EZ Insertion of Endotracheal Airway into Trachea, Via Natural or Artificial Opening Endoscopic (ICD-10-PCS; principal; 2017-10-24)
DX: A41.9 Sepsis, unspecified organism (principal); J86.0 Pyothorax with fistula; J96.21 Acute and chronic respiratory failure with hypoxia; N17.0 Acute kidney failure with tubular necrosis; R65.21 Severe sepsis with septic shock; L89.154 Pressure ulcer of sacral region, stage 4; R53.2 Functional quadriplegia; J69.0 Pneumonitis due to inhalation of food and vomit; J84.9 Interstitial pulmonary disease, unspecified; E43 Unspecified severe protein-calorie malnutrition; Z99.11 Dependence on respirator [ventilator] status; Z93.0 Tracheostomy status; E86.0 Dehydration; J96.22 Acute and chronic respiratory failure with hypercapnia; G12.21 Amyotrophic lateral sclerosis; J98.51 Mediastinitis; Z93.1 Gastrostomy status; Z87.440 Personal history of urinary (tract) infections; Z66 Do not resuscitate; K21.9 Gastro-esophageal reflux disease without esophagitis; D63.8 Anemia in other chronic diseases classified elsewhere; E88.09 Other disorders of plasma-protein metabolism, not elsewhere classified; Z87.01 Personal history of pneumonia (recurrent); E87.2 Acidosis; Z74.01 Bed confinement status
CPT/HCPCS: 36415; 36600; 71045-TC; 71250-TC; 80053-TC; 80061-TC; 82248-TC; 82803-TC; 83605-TC; 83735-TC; 84100-TC; 85025-TC; 87040-TC; 87070-TC; 87186-TC; 94002-TC; 94003-TC; 99082-TC; A6253; A6402; A6403; J0330; J2185; J2543; J3370; J3490; J7030; J7040; J7060